=== PATIENT | male | born 1955 | race Two or more races ===

== ENCOUNTER → 2020-10-06 09:36 | Outpatient (BNVA) | payer MEDICARE, SELFPAY | PROVIDERS: Visit Provider Physician Assistant | DX: R13.10 Dysphagia, unspecified (principal); K21.9 Gastro-esophageal reflux disease without esophagitis; K22.2 Esophageal obstruction; D36.9 Benign neoplasm, unspecified site; Z78.9 Other specified health status | CPT/HCPCS: 99202 ==

== ENCOUNTER 2020-10-13 09:38 | Day surgery (SDC) | payer MEDICARE, SELFPAY ==
--- NOTE | 2020-10-10 09:45 | P.CONAN_ITS ---
Documented by User: Maricarmen Rg 10/10/20 09:51 HPI - Anesthesia Eval Consult details Narrative: 65yo M for Upper Endoscopy [facility] Active Problems Active Problems: All Active Problems (Updated 10/06/20 @ 10:49 by Ami Rico PA-C) Language barrier (Acute) Tubular adenoma (Acute) Schatzki's ring (Acute) HTN (hypertension) (Acute) Dysphagia (Acute) Acid reflux (Acute) Past Medical History Medical History Acid reflux Dysphagia HTN (hypertension) Schatzki's ring Surgical History Surgical History H/O umbilical hernia repair Social History Social History Household Members: None Alcohol intake: current Alcohol intake frequency: holidays/special occasions only Smoking Status: Former smoker Use of substances other than those prescribed or required for medical reasons: No Advance Directives: No Advance Directives Information Provided: Yes Recently lost weight without trying: No Current occupational status: retired [email or web address] Allergies Allergy/AdvReac Type Severity Reaction Status Date / Time No Known Allergies Allergy Unverified 03/27/20 14:59 [No Known Allergies*] Home Medications Medication Instructions Recorded Confirmed Last Taken Type donepezil 5 mg tablet 5 mg PO DAILY 10/06/20 10/06/20 Unknown History hydrochlorothiazide 12.5 mg tablet 12.5 mg PO DAILY 10/06/20 10/06/20 Unknown History losartan 100 mg tablet 100 mg PO DAILY 10/06/20 10/06/20 Unknown History pantoprazole 40 mg tablet,delayed 40 mg PO DAILY 10/06/20 10/06/20 Unknown History release Exam Exam Date and Time: October 10, 2020 0945 Assessment and Plan Assessment Anesthesia Assessment: Chart Reviewed Documented by User: April Jain 10/13/20 11:54 [facility] Past Medical History Medical History Acid reflux Dysphagia HTN (hypertension) Schatzki's ring Family History Family history of problems with anesthesia: No Surgical History Surgical History H/O umbilical hernia repair History of Problems with Anesthesia: No Social History Social History Household Members: None Alcohol intake: current Alcohol intake frequency: holidays/special occasions only Smoking Status: Former smoker Use of substances other than those prescribed or required for medical reasons: No Advance Directives: No Advance Directives Information Provided: Yes Recently lost weight without trying: No Current occupational status: retired Meds Allergies Allergy/AdvReac Type Severity Reaction Status Date / Time No Known Allergies Allergy Unverified 03/27/20 14:59 [No Known Allergies*] Home Medications Medication Instructions Recorded Confirmed Last Taken Type donepezil 5 mg tablet 5 mg PO DAILY 10/06/20 10/06/20 Unknown History hydrochlorothiazide 12.5 mg tablet 12.5 mg PO DAILY 10/06/20 10/06/20 Unknown History losartan 100 mg tablet 100 mg PO DAILY 10/06/20 10/06/20 Unknown History pantoprazole 40 mg tablet,delayed 40 mg PO DAILY 10/06/20 10/06/20 Unknown History release Exam Exam Date and Time: Height 5 ft 4 in Weight 63.503 kg Vital Signs Temp Pulse Resp BP Pulse Ox 10/13/20 11:32 98.1 F 68 15 155/82 H 97 Airway Mallampati Class: II TM Dist: >3cm Neck ROM: Full Heart: RRR Lungs: CTAB Assessment and Plan Assessment Anesthesia Assessment: Anesthesia Plan Discussed and Chart Reviewed Final Anesthetic Review NPO: Yes ASA Class: II Final Preanesthetic Review: No Changes in Pt Med Stat, Meds/Allgs Chart Reviewed, Consent Obtained/Reviewed and Anes Risks/Benef Reviewed Patient Risk: Low Procedure Risk: Low Assessment/Block/Sedation in SS: Assess/Block/Sedation-SS Anesthetic Plan Anesthetic Plan: MAC: Disposition: Standard PACU
[2020-10-13 11:09] VITALS: BMI 24.0
[2020-10-13 11:32] VITALS: BP 155/82; PULSE 68; RESP 15; TEMP 36.7; O2SAT 97
[2020-10-13] MEDS: Lactated Ringers 1,000 ML 100 ML IVCONT (11:33)
--- NOTE | 2020-10-13 12:08 | P.OP_ITS ---
Operative Note Operative Note Date of Service: 10/13/20 Narrative: Pre-op diagnosis: GERD, dysphagia Post-op diagnosis: other (GERD, Hiatal hernia, Schatzki's ring, esophagitis, gastritis) Procedure: FLEXIBLE TRANSORAL UPPER GASTROINTESTINAL ENDOSCOPY WITH BIOPSIES AND ESOPHAGEAL BALLOON DILATION Consent: Indications for the procedure and potential complications of bleeding, perforation, reaction to medications and missed diagnosis were discussed with the patient and informed consent was obtained. Instrument: Olympus GIF H 190 mid size upper endoscope Monitoring: Vital signs and clinical assessment, continuous EKG monitoring, Pulse oximetry, Carbon Dioxide monitoring and blood pressure monitoring were done throughout the procedure. Procedure: The patient was placed in the left lateral decubitis position and pre-procedure medications were administered and a bite block was placed. The endoscope was inserted into the mouth and advanced under direct vision to the third part of duodenum. A careful inspection was made as the upper endoscope was withdrawn including a retroflexed examination of the proximal stomach; Findings and interventions are described below. Findings: Larynx: Normal Esophagus: Tortuous esophagus with increased tertiary contractions. GE junction at 38 cms, hiatal hernia 38 to 42 cms. A focal 0.5 cms chronic appearing erosion at GE junction. A partially obstructing schatki's ring. Esophageal balloon dilation was per formed with 19 and 20 mm CRE balloon for 60 seconds at each level. Stomach: Moderate diffuse gastric erythema. Biopsies were obtained from the gastric antrum and body of the stomach. Grade 3 flap valve on retroflexed examination of the cardia. Duodenum: Normal bulb and descending duodenum Intervention: Biopsies and esophageal balloon dilation to 20 mm (60 F) as noted above Impression and Post Procedure Diagnosis: Endoscopy Findings: ESOPHAGUS: Tortuous esophagus with increased tertiary contractions. GE junction at 38 cms, hiatal hernia 38 to 42 cms. A focal 0.5 cms chronic appearing erosion at GE junction. A partially obstructing schatki's ring. Esophageal balloon dilation was performed with 19 and 20 mm CRE balloon for 60 seconds at each level. STOMACH: Diffuse gastritis Dysphagia is likely a combination of esophageal motility disorder and Schatzki's ring. Plan: Await pathology results Patient has an appointment on 10/23/20 in the GI Clinic with WAYNE Doran. If symptoms persist, consider further evaluation with a barium swallow. Above findings were reviewed with the patient and GERD handout was given in the discharge area Surgeon: Dionne Gage MD Anesthesia: MAC (Sydney Oliver CRNA) Director Of Recreation Therapy: Kayli Mendez Estimated blood loss (mL): 0 Pathology: other (A. Gastric antrum, B. gastric body) Condition: stable Disposition: PACU
--- NOTE | 2020-10-13 12:08 | MHC.SHP ---
Pre-Procedural Eval Section A The patient is an INPATIENT: No Changes since office visit: Yes Patient answered all questions; No Cold of Flu in the past 2 weeks, No New Medical Problems and No Changes in Medication The History & Physical has been completed within 30 days and I have reviewed it.: Yes Section B Chief Complaint: GERD Allergies: Allergies Allergy/AdvReac Type Severity Reaction Status Date / Time No Known Allergies Allergy Unverified 03/27/20 14:59 [No Known Allergies*] Plan I have reviewed the history and physical and performed a pertinent physical examination on my patient. No changes have occurred unless specified.
[2020-10-13 12:39] VITALS: BP 135/76; PULSE 78; RESP 15; TEMP 36.8; O2SAT 99
[2020-10-13 12:55] VITALS: BP 140/82; PULSE 59; RESP 18; TEMP 36.6; O2SAT 99
== END 2020-10-13 13:50 | disposition home or self-care (01) ==
PROVIDERS: Visit Provider Internal Medicine Gastroenterology
PROC: 0DJ08ZZ Inspection of Upper Intestinal Tract, Via Natural or Artificial Opening Endoscopic (ICD-10-PCS; CPT 43235; principal; 2020-10-13 11:20)
DX: K21.9 Gastro-esophageal reflux disease without esophagitis (principal); K22.2 Esophageal obstruction; K29.50 Unspecified chronic gastritis without bleeding; K44.9 Diaphragmatic hernia without obstruction or gangrene; I10 Essential (primary) hypertension; Z79.899 Other long term (current) drug therapy; Z87.891 Personal history of nicotine dependence
CPT/HCPCS: 43249; 43239; 88305; 88342; C1726

== ENCOUNTER → 2020-10-23 08:55 | Outpatient (BNVA) | payer MEDICARE, SELFPAY | PROVIDERS: PCP Internal Medicine; Visit Provider Physician Assistant | CPT/HCPCS: Q3014 ==

== ENCOUNTER 2020-11-07 08:41 | Outpatient (REF) | payer MEDICARE, SELFPAY ==
--- NOTE | ~2020-11-07 | FL_ITS ---
EXAMINATION: FL BARIUM SWALLOW CLINICAL INFORMATION: Dysphagia. COMPARISON: None. TECHNIQUE: Barium swallow examination is performed using fluoroscopic evaluation in addition to multiple fluoroscopic spot views. The patient is imaged both upright and prone and using both thick and thin sulfate along with effervescent granules. Fluoroscopy time: 1.7 minutes DAP: 63.7 Gy-cm2 Images: 68 FINDINGS: Mild esophageal dysmotility. There is a smooth impression of the posterior aspect of the cervical esophagus, probably related to the cricopharyngeal muscle. There is a smooth concavity along the left lateral aspect of the esophagus at the level of the upper thorax. This could be related to extrinsic compression. No hiatal hernia. No reflux is seen. Patient swallowed a barium tablet with normal passage to the stomach. FL/FL barium swallow IMPRESSION: 1. Prominent smooth concavity along the left lateral aspect of the esophagus at the level of the upper thorax. This could be related to extrinsic compression. Recommend further evaluation with CT chest. 2. Mild esophageal dysmotility. 3. Impression along the posterior aspect of the cervical esophagus, may be related to cricopharyngeal muscle.
== END 2020-11-07 08:42 | disposition home or self-care (01) ==
LOC: HO.XRAY 08:41
PROVIDERS: Visit Provider Physician Assistant
DX: R13.10 Dysphagia, unspecified (principal); K21.9 Gastro-esophageal reflux disease without esophagitis; K22.2 Esophageal obstruction
CPT/HCPCS: 74220

== ENCOUNTER → 2020-11-12 14:02 | Outpatient (BNVA) | payer MEDICARE, SELFPAY | PROVIDERS: Visit Provider Physician Assistant | DX: Z13.89 Encounter for screening for other disorder (principal) | CPT/HCPCS: Q3014 ==

== ENCOUNTER 2020-12-26 13:34 | Outpatient (REF) | payer MEDICARE, SELFPAY ==
[2020-12-26 15:44] LABS: Blood Urea Nitrogen 23 mg/dL (9-16); Estimated Glomerular Filt Rate > 60
== END 2020-12-26 13:35 | disposition home or self-care (01) ==
LOC: HO.CT 13:34
PROVIDERS: PCP Internal Medicine; Visit Provider Physician Assistant
DX: R13.10 Dysphagia, unspecified (principal); R93.3 Abnormal findings on diagnostic imaging of other parts of digestive tract
CPT/HCPCS: 36415; 82565; 84520

== ENCOUNTER → 2021-07-16 10:19 | Outpatient (BNVA) | payer MEDICARE, SELFPAY | PROVIDERS: PCP Internal Medicine; Referring Provider Internal Medicine; Visit Provider Surgery | DX: K43.9 Ventral hernia without obstruction or gangrene (principal); R10.31 Right lower quadrant pain | CPT/HCPCS: 99202 ==

== ENCOUNTER 2021-08-07 09:06 | Outpatient (REF) | payer MEDICARE, SELFPAY ==
[2021-08-07 09:26] LABS: MANUAL DIFF FLAG NO
[2021-08-07 10:17] LABS: Basophils Absolute Auto 0.1 X10*3/uL (0.0-0.2); Basophils Percent Auto 0.6 % (0-2); Eosinophils Absolute Auto 0.5 X10*3/uL (0.0-0.4); Eosinophils Percent Auto 6.5 % (0-4); Imm Gran Abs Auto 0.02 X10*3/uL (0.00-0.03); Imm Gran Pct Auto 0.3 % (0.0-0.4); Lymphocytes Absolute Auto 1.8 X10*3/uL (1.2-4.9); Lymphocytes Percent Auto 23.5 % (20-40); Mean Corpuscular HGB Conc 32.6 g/dl (31.0-36.0); Mean Corpuscular Hemoglobin 29.4 pg (27.0-33.0); Mean Corpuscular Volume 90.1 fL (80.0-98.0); Mean Platelet Volume 8.6 fL (9.4-12.4); Monocytes Absolute Auto 0.7 X10*3/uL (0.1-1.2); Monocytes Percent Auto 8.8 % (2-11); Neutrophils Absolute Auto 4.7 x10*3/uL (2.0-8.3); Neutrophils Percent Auto 60.3 % (45-73); Platelet Count 430 X10*3/uL (160-400); Red Blood Count 4.77 X10*6/uL (4.60-5.80); Red Cell Distribution Width 12.8 % (11.0-16.0); White Blood Count 7.7 X10*3/uL (4.8-10.8)
[2021-08-07 10:25] LABS: Estimated Average Glucose 111 mg/dL; Hemoglobin A1c % 5.5 %
[2021-08-07 10:52] LABS: Alanine Aminotransferase 13 U/L (0-40); Albumin Level 4.5 g/dL (3.5-5.0); Alkaline Phosphatase 68 U/L (39-117); Anion Gap 12 (12-20); Aspartate Amino Transferase 15 U/L (5-37); Bilirubin Direct 0.3 mg/dL (0.0-0.5); Bilirubin Total 0.7 mg/dL (0.0-1.0); Blood Urea Nitrogen 15 mg/dL (9-16); Calcium 9.9 mg/dL (8.4-10.2); Carbon Dioxide 31 mmol/L (22-29); Chloride 102 mmol/L (96-108); Cholesterol 243 mg/dL; Estimated Glomerular Filt Rate > 60; Glucose Random 95 mg/dL (60-115); HDL Cholesterol 53 mg/dL; LDL Cholesterol Calculated 176 mg/dl; Potassium 4.5 mmol/L (3.3-5.1); Sodium 140 mmol/L (135-145); Total Protein 7.5 g/dL (6.5-8.0); Triglycerides 72 mg/dL
[2021-08-07 11:01] LABS: Vitamin D 25-OH Total 32.6 ng/mL (>30)
== END 2021-08-07 09:07 | disposition home or self-care (01) ==
LOC: HO.LAB 09:06
PROVIDERS: Absent Provider Internal Medicine; PCP Internal Medicine; Visit Provider Surgery
DX: R10.31 Right lower quadrant pain (principal); I10 Essential (primary) hypertension
CPT/HCPCS: 36415; 80048; 80061; 80076; 82306; 83036; 84520; 85025

== ENCOUNTER 2021-08-11 11:38 | Outpatient (REF) | payer MEDICARE, SELFPAY ==
--- NOTE | ~2021-08-11 | CT_ITS ---
EXAMINATION: CT ABDOMEN AND PELVIS WITH CONTRAST CLINICAL INFORMATION: Right lower quadrant pain. COMPARISON: None TECHNIQUE: Multidetector volumetric images were obtained from the superior aspect of the liver through the pubic symphysis following administration 85 mL of Omnipaque 350 intravenous contrast. Sagittal and coronal reformatted images were obtained on the technologist's workstation. Oral contrast: No This CT examination was performed using dose optimization techniques as appropriate, variously including the following: *Automated exposure control *Adjustment of mA and/or kV according to patient size (this includes techniques or standardized protocols for targeted exams where dose is matched to indication/reason for exam; i.e. extremities or head) *Use of iterative reconstruction technique DLP: 266 mGy-cm FINDINGS: LUNG BASES: The lung bases are clear. The heart size is normal. LIVER, GALLBLADDER, AND BILIARY TREE: The liver is normal in size, shape, and attenuation. No focal hepatic lesion or biliary ductal dilatation is present. The gallbladder is unremarkable with no evidence of radiopaque gallstones, gallbladder wall thickening, or obvious pericholecystic inflammatory changes. PANCREAS: Unremarkable. SPLEEN: Unremarkable. ADRENAL GLANDS: Unremarkable. KIDNEYS AND URETERS: The kidneys are normal in size, shape, and attenuation. No hydronephrosis, hydroureter, or calculi seen. No perinephric stranding. There is a 6 mm nonenhancing cyst midpole left kidney. BLADDER: Unremarkable. GASTROINTESTINAL TRACT: There is scattered stool and oral contrast seen throughout the colon without distention. The small bowel loops are normal caliber. Appendix is normal caliber. No inflammatory process seen in the right lower quadrant. ABDOMINAL WALL: There is a small umbilical hernia containing fat. LYMPH NODES: Normal. VASCULAR: Minimal atherosclerotic calcification of abdominal aorta without dilatation. PELVIC VISCERA: Unremarkable. OSSEOUS STRUCTURES: No lytic or sclerotic process seen. CT/CT abdomen pelvis w con IMPRESSION: 1. No acute intra-abdominal process seen. 2. A normal appendix, ileocecal junction and terminal ileum is noted. Fleischner guidelines were followed.
[2021-08-11] MEDS: iohexoL 350 MG/ML 100 ML INFUS..BTL 85 ML IV (15:14)
[2021-08-11] MEDS: Barium Sulfate Oral (Mocha) 450 ML ORAL.SUSP 900 ML PO (15:15)
== END 2021-08-11 11:39 | disposition home or self-care (01) ==
LOC: HO.CT 11:38
PROVIDERS: Visit Provider Surgery
DX: R10.31 Right lower quadrant pain (principal); K43.9 Ventral hernia without obstruction or gangrene
CPT/HCPCS: 74177; Q9967

== ENCOUNTER → 2021-08-20 14:22 | Outpatient (BNVA) | payer MEDICARE, SELFPAY | PROVIDERS: PCP Internal Medicine; Referring Provider Internal Medicine; Visit Provider Surgery | DX: Z98.890 Other specified postprocedural states (principal); Z87.19 Personal history of other diseases of the digestive system | CPT/HCPCS: 99212 ==

== ENCOUNTER → 2022-06-21 14:30 | Outpatient (BNVA) | payer MEDICARE, SELFPAY | PROVIDERS: PCP Internal Medicine; Referring Provider Internal Medicine; Visit Provider Internal Medicine Cardiovascular Disease | DX: R07.9 Chest pain, unspecified (principal); I10 Essential (primary) hypertension | CPT/HCPCS: 93005; 99202 ==

== ENCOUNTER 2022-06-28 08:08 | Outpatient (REF) | payer OTHER, SELFPAY ==
[2022-06-28 09:43] LABS: Anion Gap 14 (12-20); Blood Urea Nitrogen 13 mg/dL (9-16); Carbon Dioxide 29 mmol/L (22-29); Chloride 104 mmol/L (96-108); Estimated Glomerular Filt Rate > 60; Glucose Random 97 mg/dL (60-115); Potassium 4.9 mmol/L (3.3-5.1); Sodium 142 mmol/L (135-145)
== END 2022-06-28 08:09 | disposition home or self-care (01) ==
LOC: HO.LAB 08:08
PROVIDERS: PCP Internal Medicine; Visit Provider Internal Medicine Cardiovascular Disease
DX: I10 Essential (primary) hypertension (principal)
CPT/HCPCS: 36415; 80048

== ENCOUNTER → 2022-08-02 08:02 | Outpatient (REF) | payer OTHER, SELFPAY ==
--- NOTE | ~2022-08-02 | NM_ITS ---
Exercise Myocardial perfusion study Indication: Chest pain to evaluate for myocardial ischemia Technique: The patient was brought in for an exercise perfusion study on 08/02/2022. Patient performed exercise as per Cresencio protocol and was injected 25 mCi of sestamibi was given intravenously one target HR was achieved. Images were obtained using the SPECT gamma camera interlaced with the gating device. Images were obtained in supine position. Resting perfusion study was performed on 08/03/2022. Patient was administered 25 mCi of sestamibi intravenously at rest. Images were then obtained in supine position. Images obtained with and without CT attenuation. Total DLP 74 mGy-cm. Images were processed with the software and compared side to side in short axis, horizontal long axis and vertical long axis views. Findings: The stress perfusion study showed non attenuated images show moderately reduced uptake in the basal inferior wall of the LV myocardium. Remainder of the LV myocardium is normally perfused. Attenuation corrected images show normal uptake of radiotracer in all segments of LV myocardium. The gated study shows normal LV systolic function with calculated LVEF of 70%. LV cavity is normal in size. The gated study shows normal systolic wall thickening and contraction of all segments. There is no transient ischemic dilation. Resting study shows no change in perfusion pattern compared to stress perfusion study. Gating at rest reveals normal systolic wall motion with ejection fraction at 68%. The findings are consistent with normal myocardial perfusion. NM/NM cardiolite stress test Impression: 1. Normal myocardial perfusion 2. Gated LVEF is 70% 3. Transient ischemic dilatation not present Stress EKG is negative for ischemia
--- NOTE | 2022-08-02 08:05 | CA_ITS ---
Transthoracic Echocardiogram Patient (Last, First, Middle): Chepe Xie A Gender: Male Date of : 1955 Age: 67 Procedure Date: 08/02/2022 Procedure Type: Transthoracic Echocardiogram Location: OP Height: 160.02 cm Weight: 63.5 kg BSA: 1.66 m2 Heart Rate: bpm BP: 132 / 80 mmHg Seafood Preparer: Referring MD: Chapin Miranda MD Symptoms: I10 - Essential (primary) hypertension Study Quality: Good ECG Rhythm: Sinus Conclusions: - The left ventricular systolic function is normal. The visually estimated ejection fraction is between 55-60%. - The basal inferior, basal inferoseptal, and basal inferolateral segments are hypokinetic. - No obvious valvular pathology seen on this study. - There is evidence of a dilated coronary sinus. Findings Left Ventricle Normal left ventricular cavity size. There is mildly increased left ventricular wall thickness. The left ventricular systolic function is normal. The visually estimated ejection fraction is between 55-60%. There is evidence of regional wall motion abnormalities. Diastolic function is normal for age. Wall Motion Rest Echo Findings The basal inferior, basal inferoseptal, and basal inferolateral segments are hypokinetic. Right Ventricle Normal right ventricular cavity size and systolic function. Atria Both atria are normal in size. Aortic Valve There is a normal trileaflet aortic valve. There is no aortic valve stenosis. There is trace (trivial) aortic valve regurgitation. Mitral Valve The mitral valve appears normal. There is trace mitral valve regurgitation. There is no mitral valve stenosis. Pulmonic Valve The pulmonic valve is likely normal. Tricuspid Valve Normal tricuspid valve structure. There is trace tricuspid valve regurgitation. There is no evidence of pulmonary hypertension. Great Vessels The asc aorta is normal in size. Venous The inferior vena cava is normal in size and collapses less than 50% with inspiration. There is evidence of a dilated coronary sinus. Pericardium/Pleural There is no evidence of pericardial effusion. Prior Study Comparison No prior study available for comparison. Recommendations, Care & Conclusions No obvious valvular pathology seen on this study. Measurements 2D Linear Measurements IVSd: 1.19 0.6-0.9/0.6-1.0 cm LVIDd: 3.78 3.9-5.3/4.2-5.9 cm LVIDd Index: 2.28 2.4-3.2/2.2-3.1 cm/m2 LVIDs: 2.65 2.0-3.6 cm LVPWd: 1.19 0.7-1.1 cm Ao Root: 3.00 2.1-3.5 cm LA Diam: 2.70 2.7-3.8/3.0-4.0 cm LAIDs Index: 1.63 1.5-2.3 cm/m2 LV Mass: 186.92 67-162/88-224 g LV Mass Index: 112.60 43-95/49-115 g/m2 LVOT Diam: 2.00 3.0+(-)1.3 cm 2D Systolic Function EF 4C: 52.20 >55% EF 2C: 62.50 >55% EF BiP: 53.60 >55% Mitral Valve MV Pk E: 0.61 MV PK A: 0.80 MV Decel Time: 194.00 E/A: 0.80 E'Lateral: 9.14 E'Medial: 6.74 E/E' Med: 9.00 E/E' Lat: 6.70 PHT: 57.00 MVA PHT: 3.86 Decel Laporte: 3.14 Aortic Valve AoV Pk Morgan: 1.45 AoV Mn Omrgan: 1.03 AoV VTI: 0.31 AoV Pk Grad: 8.00 Aov Mn Grad: 5.00 CHARLIE Cont.VTI: 1.79 LVOT LVOT Pk Morgan: 0.75 LVOT Mn Morgan: 0.45 LVOT VTI: 0.18 LVOT Pk Grad: 2.00 LVOT Mn Grad: 1.00 LVOT Diam: 2.00 LVOT Area: 3.14 Diastolic Function MV Pk E: 0.61 MV Pk A: 0.80 E/A: 0.80 E'Medial: 6.74 E/E' Med: 9.00 E' Laterial: 9.14 E/E' Lat: 6.70 Right Ventricle TAPSE (mm): 26.00 TVS' Morgan: 12.00 Tricuspid Valve TR Pk Morgan: 2.25 TR Pk Grad: 20.00 RA Press: 8.00 RVSP: 28.00 Great Vessels Aorta Ao Root-2D: 3.00 2.0-3.7 cm Ao Asc: 3.00 2.1-3.4 cm Pulmonary Valve PV Pk Morgan: 1.08 Peak PV Grad: 5.00 Updated in Other Vendor System with Status of Final Mike Navarro MD electronically signed on 08/02/2022 11:08:10 AM with status of Final
--- NOTE | 2022-08-02 08:05 | CA_ITS ---
Acquisition Time: 2022-08-02 08:58:45 Total Exercise Time: 00:08:00 Test Indications: CHEST PAIN Medications: AMLODIPINE ASA ATORVASTATIN DONEPEZIL HCTZ LOSARTAN PANTOPRAZOLE SUCRALFATE Protocol: THONY Max HR: 148 BPM 98% of Pred: 151 BPM Max BP: 196/070 mmHG Max Work Load: 10.1 METS Exercise stress test with exercise 8 min of Thony protocol, achieving 98% MPHR, without anginal symptoms, without arrythmia, with baseline BP 146/78 and rise up to 196/70 with exercise, without EKG changes meeting criteria for ischemia. In recovery his BP came down to 148/78 . Nuclear images pending. Test reviewed with Dr Navarro Referred By: Chapin Miranda Overread By: ALANA WALLACE
== END ==
LOC: HO.CARD 08:02
PROVIDERS: PCP Internal Medicine; Visit Provider Internal Medicine Cardiovascular Disease
DX: R07.9 Chest pain, unspecified (principal); I10 Essential (primary) hypertension
CPT/HCPCS: 78452; 93017; 93306; A9500

== ENCOUNTER → 2022-09-24 10:28 | Outpatient (BNVA) | payer OTHER, SELFPAY | PROVIDERS: PCP Internal Medicine; Referring Provider Internal Medicine; Visit Provider Internal Medicine Cardiovascular Disease | DX: I10 Essential (primary) hypertension (principal) | CPT/HCPCS: 99212 ==

== ENCOUNTER 2023-09-12 14:22 | Outpatient (AMB) | payer OTHER, SELFPAY ==
[2023-09-12 14:24] VITALS: BP 160/98; PULSE 72; BMI 23.0
--- NOTE | 2023-09-12 14:24 | A.OFFVIS_ITS ---
Intake Vital Signs 09/12/23 14:24 Height 5 ft 4 in Weight 133 lb 13.129 oz BMI 23.0 BP 160/98 H Blood Pressure Location Lt brachial Position Sitting Pulse 72 Pulse Source Monitor Intake Visit Reasons: 1 year f/ up Intake Note: 1 year follow up Branch Credit Counselor Required: Yes Branch Credit Counselor Name: [facility] [place] Allergies No Known Allergies [No Known Allergies*] Allergy (Verified 09/24/22 10:35) Medication List - Last Reconciled 09/12/23 by Chapin Miranda MD amlodipine 10 mg PO QPM aspirin 81 mg PO QAM atorvastatin 40 mg PO BEDTIME cholecalciferol (vitamin D3) 50 mcg PO DAILY donepezil 10 mg PO BEDTIME hydrochlorothiazide 50 mg PO QAM ibuprofen 600 mg PO TID losartan 100 mg PO DAILY pantoprazole 40 mg PO DAILY spironolactone (Aldactone) 25 mg PO DAILY 90 days sucralfate mL PO HPI HPI Comments History of Present Illness Details Chepe comes for follow-up. History was obtained with help of calendering machine operator. Patient says usually his blood pressure at home are 128-134 systolic. He has no significant symptoms from cardiac perspective. He walks on a regular basis. Denies any exertional chest pain or shortness of breath. He denies any lightheadedness, syncope. No prolonged palpitation. He takes all his medications regularly. He said he had high salt diet yesterday. Otherwise watches the salt in his diet. [facility] Medical History Schatzki's ring HTN (hypertension) Dysphagia Acid reflux Surgical History Hx of esophagogastroduodenoscopy H/O umbilical hernia repair Social History Household Members: None Alcohol intake: current Alcohol intake frequency: holidays/special occasions only Patient Tobacco Use Status: Former Tobacco user Quit Date: 2015 Years Smoked: 30 +/- Current occupational status: retired Review of Systems Const Denies chills, Denies fatigue, Denies fever(s), Denies frequent falls, Denies weakness, Denies weight gain and Denies weight loss ENT Denies dizziness Card Denies chest pain, Denies leg edema, Denies lightheadedness, Denies palpitations, Denies dyspnea, Denies dyspnea on exertion, Denies orthopnea and Denies other (loss of consciousness) Resp Denies cough, Denies dyspnea and Denies dyspnea on exertion GI Denies hematochezia and Denies change in stool character Musc Denies abnormal gait, Denies muscle weakness, Denies numbness, Denies radiating pain into limb and Denies tingling Neuro Denies Abnormal speech present, Denies abnormal gait, Denies dizziness, Denies frequent falls, Denies numbness, Denies tingling and Denies weakness Endo Denies fatigue and Denies palpitations Physical Exam Vital Signs: Last Vital Signs Pulse 72 09/12/23 14:24 BP 160/98 H 09/12/23 14:24 BMI result Body Mass Index 23.0 Const General: cooperative, comfortable, no acute distress, alert and awake Nutritional Appearance: average body habitus Orientation/consciousness: patient oriented x3 Neck Neck: Yes trachea midline, Yes supple and Yes no JVD Resp Effort & Inspection: normal respiratory effort Auscultation: clear to auscultation bilaterally Cardio Jugular venous distension: no JVD Palpation: normal PMI Rate: regular rate Rhythm: regular rhythm Heart sounds: S1 normal heart sound present, S2 normal heart sound present, no click, no gallops, no murmurs and no rubs Neuro General: patient oriented x3 and no focal motor deficits Speech: No Abnormal speech present Office Procedures EKG Details: EKG shows normal sinus rhythm with voltage criteria for LVH 40465-[id number], Complete Assessment & Plan Assessment & Plan (1) Uncontrolled hypertension: Code(s): I10 - Essential (primary) hypertension Plan: One reading of uncontrolled blood pressure on today's exam. He had a higher salt diet yesterday. However advised him to monitor blood pressure at home more regularly at different times a day and maintain a log. Advised to drop of the log in 1 month's time. Said generally his blood pressure at home is well controlled. Does not have any exertional symptoms. Has no signs or symptoms of heart failure. At this point time I would suggest no change in therapy and follow-up after more data points to see if he requires further workup and further blood pressure lowering therapy. This was discussed with him. Importance of low-salt diet was discussed. He understands agrees. Will follow up in the clinic in 1 year's time, sooner p.r.n.. Coding Level of Care Code Est Pt Level 3 (40371) Diagnoses Uncontrolled hypertension I10 CPT Codes EKG - CPT: 86240-[id number], Complete ([id number])
== END 2023-09-12 14:47 | disposition home or self-care (01) ==
PROVIDERS: PCP Internal Medicine; Visit Provider Internal Medicine Cardiovascular Disease
DX: I10 Essential (primary) hypertension (principal)
CPT/HCPCS: 93010; 99213

== ENCOUNTER → 2023-09-12 14:22 | Outpatient (BNVA) | payer OTHER, SELFPAY | PROVIDERS: Visit Provider Internal Medicine Cardiovascular Disease | DX: I10 Essential (primary) hypertension (principal) | CPT/HCPCS: 93005; 99212 ==

== ENCOUNTER 2023-11-08 08:39 | Outpatient (REF) | payer OTHER, SELFPAY ==
[2023-11-08 12:35] LABS: Alanine Aminotransferase 13 U/L (0-40); Albumin Level 4.4 g/dL (3.5-5.0); Alkaline Phosphatase 51 U/L (39-117); Anion Gap 12 (12-20); Aspartate Amino Transferase 15 U/L (5-37); Bilirubin Direct 0.2 mg/dL (0.0-0.5); Bilirubin Total 0.9 mg/dL (0.0-1.0); Blood Urea Nitrogen 14 mg/dL (9-16); Calcium 9.2 mg/dL (8.4-10.2); Carbon Dioxide 26 mmol/L (22-29); Chloride 105 mmol/L (96-108); Cholesterol 228 mg/dL (<200); Estimated Glomerular Filt Rate > 60; Glucose Random 93 mg/dL (60-115); HDL Cholesterol 47 mg/dL (>40); LDL Cholesterol Calculated 163 mg/dL (<100); Potassium 3.9 mmol/L (3.3-5.1); Sodium 139 mmol/L (135-145); Total Protein 7.5 g/dL (6.5-8.0); Triglycerides 90 mg/dL (<150)
[2023-11-08 15:16] LABS: Estimated Average Glucose 108 mg/dL; Hemoglobin A1c % 5.4 % (<6.0)
== END 2023-11-08 08:40 | disposition home or self-care (01) ==
LOC: HO.HHCL 08:39
PROVIDERS: Visit Provider Internal Medicine
DX: I10 Essential (primary) hypertension (principal)
CPT/HCPCS: 36415; 80048; 80061; 80076; 83036

== ENCOUNTER 2024-01-09 09:34 | Outpatient (AMB) | payer OTHER, SELFPAY ==
[2024-01-09 09:34] VITALS: BP 160/90; PULSE 67; O2SAT 99; BMI 24.7
--- NOTE | 2024-01-09 09:34 | HO.NEPHOV ---
Vital Signs 01/09/24 09:34 Height 5 ft 4 in Weight 144 lb BMI 24.7 BP 160/90 H Blood Pressure Location Rt brachial Position Sitting Pulse 67 Pulse Source Pulse Oximeter Pulse Oximetry (%) 99 Oxygen Delivery Method Room Air Intake Visit Reasons: Resistant Hypertension/ Conf Solderer Dipper Required: Yes Solderer Dipper Name: Shola [id number] Accompanied by: Self / Same As Patient Allergies No Known Allergies [No Known Allergies*] Allergy (Verified 01/09/24 09:39) Medication List - Last Reconciled 01/09/24 by Yanick Lind MD amlodipine 10 mg PO QPM aspirin 81 mg PO QAM atorvastatin 40 mg PO BEDTIME carvedilol 6.25 mg PO BID cholecalciferol (vitamin D3) 50 mcg PO DAILY ezetimibe 10 mg PO DAILY HPI Comments Details: 68-year-old man with a history of hypertension has been referred for evaluation hypertension and possible 24 hour blood pressure monitoring. According to the chart he is on multiple antihypertensive medications. However he has not taking most of them. He has a list of medications in hand which included amlodipine 10 mg q.d. and carvedilol 6.25 mg b.i.d.. He was supposed to be on HCTZ, spironolactone, losartan but it appears that he has not taking any of these. [facility] Medical History Schatzki's ring HTN (hypertension) Dysphagia Acid reflux Surgical History Hx of esophagogastroduodenoscopy H/O umbilical hernia repair Social History Household Members: None Alcohol intake: current Alcohol intake frequency: holidays/special occasions only Patient Tobacco Use Status: Former Tobacco user Years Smoked: 30 +/- Current occupational status: retired Review of Systems Const Denies anorexia, Denies fever(s) and Denies weakness Eyes Denies blurry vision Card Denies no additional complaints and Denies dyspnea Resp Reports no additional complaints, Reports cough and Denies dyspnea GI Denies melena and Denies diarrhea Denies hematuria Musc Denies tingling Skin/Breast Denies rash Neuro Denies focal weakness, Denies tingling, Denies tremor(s) and Denies weakness Physical Exam Vital Signs: Last Vital Signs Pulse 67 01/09/24 09:34 BP 160/90 H 01/09/24 09:34 Pulse Ox 99 01/09/24 09:34 Oxygen Delivery Method Room Air 01/09/24 09:34 BMI result Body Mass Index 24.7 Const General: comfortable; No acute distress Orientation/consciousness: patient oriented x3 Eyes General: appearance normal, both eyes and all related structures Visual Lam: normal visual lam by confrontation Neck Neck: Yes supple and Yes no JVD Resp Effort & Inspection: normal respiratory effort and respiratory effort not decreased Auscultation: rhonchi Cardio Palpation: no palpable S3 and no palpable S4 Heart sounds: no rubs GI Inspection: Yes normal to inspection Palpation (GI): Soft to palpation Percussion: Yes normal to percussion Auscultation: normal bowel sounds General: Yes no CVA tenderness Back/Spine/Pelvis Back: no CVA tenderness Skin General skin exam: no petechiae and no purpura Neuro General: patient oriented x3 and no focal motor deficits Extrem General: No clubbing and No edema Results Reviewed Nephrology Results: Sodium 139 mmol/L (135-145) 11/08/23 Potassium 3.9 mmol/L (3.3-5.1) 11/08/23 Chloride 105 mmol/L (96-108) 11/08/23 Carbon Dioxide 26 mmol/L (22-29) 11/08/23 BUN 14 mg/dL (9-16) 11/08/23 Creatinine 0.85 mg/dL (0.5-1.4) 11/08/23 Calcium 9.2 mg/dL (8.4-10.2) 11/08/23 Assessment & Plan Assessment & Plan (1) Uncontrolled hypertension: Code(s): I10 - Essential (primary) hypertension Category: Medical Plan 68-year-old man with a history of hypertension currently has suboptimal blood pressure. I believes complaints could be playing a major role. Secondary causes should be evaluated as well. For now I will keep him on the current medications Check serum aldosterone and plasma renin activity. I have added spironolactone/HCTZ 20/25 one a day. Encouraged him to stay on low-sodium diet he will bring all his medications during his next visit. I shall arrange for a 24 hour ambulatory blood pressure monitoring as well. In the meantime encouraged him to stay on low-sodium diet. Orders: Orders Aldosterone Today I10 - Essential (primary) hypertension Aldost/Renin Today I10 - Essential (primary) hypertension Renin Today I10 - Essential (primary) hypertension Medications: New spironolacton-hydrochlorothiaz 25-25 mg 1 tab PO DAILY 90 tabs 0RF Coding Level of Care Code New Pt Level 4 (41704) Diagnoses Uncontrolled hypertension I10
== END 2024-01-09 09:57 | disposition home or self-care (01) ==
PROVIDERS: PCP Internal Medicine; Referring Provider Internal Medicine; Visit Provider Internal Medicine Hypertension Specialist
DX: I10 Essential (primary) hypertension (principal)
CPT/HCPCS: 99204

== ENCOUNTER 2024-01-09 09:34 | Outpatient (REF) | payer OTHER, SELFPAY ==
[2024-01-13 17:43] LABS: Renin 0.36 ng/mL/h (0.25-5.82)
[2024-01-14 13:23] LABS: Plasma Renin Activity 0.23 ng/mL/h (0.25-5.82)
== END 2024-01-09 09:35 | disposition home or self-care (01) ==
LOC: HO.LAB 09:34
PROVIDERS: PCP Internal Medicine; Referring Provider Internal Medicine; Visit Provider Internal Medicine Hypertension Specialist
DX: I10 Essential (primary) hypertension (principal)
CPT/HCPCS: 36415; 82088; 84244; 99202

== ENCOUNTER 2024-02-02 11:23 | Outpatient (AMB) | payer OTHER, SELFPAY ==
[2024-02-02 11:36] VITALS: BP 140/80; PULSE 68; O2SAT 98; BMI 24.7
--- NOTE | 2024-02-02 11:36 | HO.NEPHOV_ITS ---
Vital Signs 02/02/24 11:36 Height 5 ft 4 in Weight 144 lb BMI 24.7 BP 140/80 H Blood Pressure Location Rt brachial Position Sitting Pulse 68 Pulse Source Pulse Oximeter Pulse Oximetry (%) 98 Oxygen Delivery Method Room Air Intake Visit Reasons: Hypertension/ Conf Bus Operator Required: Yes Bus Operator Name: Luz Elena [id number] Accompanied by: Self / Same As Patient Allergies No Known Allergies [No Known Allergies*] Allergy (Verified 02/02/24 11:39) HPI Comments Details: 68-year-old man with a history of hypertension has been referred for evaluation hypertension and possible 24 hour blood pressure monitoring. All his medications were reviewed. He seems compliant to his medications at this point. No specific complaints today. Bus Operator service was used [facility] Medical History Schatzki's ring HTN (hypertension) Dysphagia Acid reflux Surgical History Hx of esophagogastroduodenoscopy H/O umbilical hernia repair Social History Household Members: None Alcohol intake: current Alcohol intake frequency: holidays/special occasions only Patient Tobacco Use Status: Former Tobacco user Years Smoked: 30 +/- Current occupational status: retired Physical Exam Vital Signs: Last Vital Signs Pulse 68 02/02/24 11:36 BP 140/80 H 02/02/24 11:36 Pulse Ox 98 02/02/24 11:36 Oxygen Delivery Method Room Air 02/02/24 11:36 BMI result Body Mass Index 24.7 Const General: comfortable; No acute distress Orientation/consciousness: patient oriented x3 Eyes General: appearance normal, both eyes and all related structures Visual [place]: normal visual [place] by confrontation Neck Neck: Yes supple and Yes no JVD Resp Effort & Inspection: normal respiratory effort and respiratory effort not decreased Auscultation: rhonchi Cardio Palpation: no palpable S3 and no palpable S4 Heart sounds: no rubs GI Inspection: Yes normal to inspection Palpation (GI): Soft to palpation Percussion: Yes normal to percussion Auscultation: normal bowel sounds General: Yes no CVA tenderness Back/Spine/Pelvis Back: no CVA tenderness Skin General skin exam: no petechiae and no purpura Neuro General: patient oriented x3 and no focal motor deficits Extrem General: No clubbing and No edema Results Reviewed Nephrology Results: Sodium 139 mmol/L (135-145) 11/08/23 Potassium 3.9 mmol/L (3.3-5.1) 11/08/23 Chloride 105 mmol/L (96-108) 11/08/23 Carbon Dioxide 26 mmol/L (22-29) 11/08/23 BUN 14 mg/dL (9-16) 11/08/23 Creatinine 0.85 mg/dL (0.5-1.4) 11/08/23 Calcium 9.2 mg/dL (8.4-10.2) 11/08/23 Assessment & Plan Assessment & Plan (1) Uncontrolled hypertension: Code(s): I10 - Essential (primary) hypertension Category: Medical Plan 68-year-old man with a history of hypertension currently blood pressure is better controlled with current regimen Encouraged him to stay on low-sodium diet he will bring all his medications during his next visit. In the meantime encouraged him to stay on low-sodium diet. Increase p.o. fluid intake. Repeat lab work ordered including serum potassium No changes were made today Orders: Orders Basic Metabolic Panel Today I10 - Essential (primary) hypertension Coding Level of Care Code Est Pt Level 3 (94501) Diagnoses Uncontrolled hypertension I10
== END 2024-02-02 11:49 | disposition home or self-care (01) ==
PROVIDERS: PCP Internal Medicine; Visit Provider Internal Medicine Hypertension Specialist
DX: I10 Essential (primary) hypertension (principal)
CPT/HCPCS: 99213

== ENCOUNTER → 2024-02-02 11:23 | Outpatient (BNVA) | payer OTHER, SELFPAY | PROVIDERS: PCP Internal Medicine; Visit Provider Internal Medicine Hypertension Specialist | DX: I10 Essential (primary) hypertension (principal) | CPT/HCPCS: 99212 ==

== ENCOUNTER 2024-02-02 12:01 | Outpatient (REF) | payer OTHER, SELFPAY ==
[2024-02-02 13:29] LABS: Anion Gap 12 (12-20); Blood Urea Nitrogen 16 mg/dL (9-16); Carbon Dioxide 30 mmol/L (22-29); Chloride 100 mmol/L (96-108); Estimated Glomerular Filt Rate > 60; Glucose Random 101 mg/dL (60-115); Potassium 4.3 mmol/L (3.3-5.1); Sodium 138 mmol/L (135-145)
== END 2024-02-02 12:02 | disposition home or self-care (01) ==
LOC: HO.10HDL 12:01
PROVIDERS: Visit Provider Internal Medicine Hypertension Specialist
DX: I10 Essential (primary) hypertension (principal)
CPT/HCPCS: 36415; 80048

== ENCOUNTER 2024-05-28 10:54 | Outpatient (AMB) | payer OTHER, SELFPAY ==
[2024-05-28 11:00] VITALS: BP 116/64; PULSE 70; O2SAT 96; BMI 24.5
--- NOTE | 2024-05-28 11:00 | HO.NEPHOV ---
Vital Signs 05/28/24 11:00 Height 5 ft 4 in Weight 143 lb BMI 24.5 BP 116/64 Blood Pressure Location Rt brachial Position Sitting Pulse 70 Pulse Source Pulse Oximeter Pulse Oximetry (%) 96 Oxygen Delivery Method Room Air Intake Visit Reasons: Hypertension/ Conf Cephalometric Analyst Required: Yes Cephalometric Analyst Name: [id number] alexander Accompanied by: Self / Same As Patient Allergies No Known Allergies [No Known Allergies*] Allergy (Verified 05/28/24 11:01) Medication List - Last Reconciled 05/28/24 by Yanick Lind MD amlodipine 10 mg PO QPM aspirin 81 mg PO QAM atorvastatin 40 mg PO BEDTIME carvedilol 6.25 mg PO BID cholecalciferol (vitamin D3) 50 mcg PO DAILY donepezil 10 mg PO DAILY ezetimibe 10 mg PO DAILY hydrochlorothiazide 50 mg PO DAILY losartan 100 mg PO DAILY pantoprazole 40 mg PO DAILY HPI Comments Details: 68-year-old man with a history of hypertension has been referred for evaluation hypertension and possible 24 hour blood pressure monitoring. All his medications were reviewed. He seems compliant to his medications at this point. No specific complaints today. Cephalometric Analyst service was used [facility] Medical History Schatzki's ring HTN (hypertension) Dysphagia Acid reflux Surgical History Hx of esophagogastroduodenoscopy H/O umbilical hernia repair Social History Household Members: None Alcohol intake: current Alcohol intake frequency: holidays/special occasions only Patient Tobacco Use Status: Former Tobacco user Years Smoked: 30 +/- Current occupational status: retired Physical Exam Vital Signs: Last Vital Signs Pulse 70 05/28/24 11:00 BP 116/64 05/28/24 11:00 Pulse Ox 96 05/28/24 11:00 Oxygen Delivery Method Room Air 05/28/24 11:00 BMI result Body Mass Index 24.5 Const General: comfortable; No acute distress Orientation/consciousness: patient oriented x3 Eyes General: appearance normal, both eyes and all related structures Visual Lam: normal visual lam by confrontation Neck Neck: Yes supple and Yes no JVD Resp Effort & Inspection: normal respiratory effort and respiratory effort not decreased Auscultation: rhonchi Cardio Palpation: no palpable S3 and no palpable S4 Heart sounds: no rubs GI Inspection: Yes normal to inspection Palpation (GI): Soft to palpation Percussion: Yes normal to percussion Auscultation: normal bowel sounds General: Yes no CVA tenderness Back/Spine/Pelvis Back: no CVA tenderness Skin General skin exam: no petechiae and no purpura Neuro General: patient oriented x3 and no focal motor deficits Extrem General: No clubbing and No edema Results Reviewed Nephrology Results: Sodium 138 mmol/L (135-145) 02/02/24 Potassium 4.3 mmol/L (3.3-5.1) 02/02/24 Chloride 100 mmol/L (96-108) 02/02/24 Carbon Dioxide 30 mmol/L (22-29) H 02/02/24 BUN 16 mg/dL (9-16) 02/02/24 Creatinine 1.02 mg/dL (0.5-1.4) 02/02/24 Calcium 10.0 mg/dL (8.4-10.2) 02/02/24 Assessment & Plan Assessment & Plan (1) Uncontrolled hypertension: Code(s): I10 - Essential (primary) hypertension Category: Medical Plan 68-year-old man with a history of hypertension currently blood pressure is better controlled with current regimen Encouraged him to stay on low-sodium diet he will bring all his medications during his next visit. In the meantime encouraged him to stay on low-sodium diet. Increase p.o. fluid intake. Repeat lab work ordered including serum potassium No changes were made today Orders: Orders Basic Metabolic Panel 6 Months I10 - Essential (primary) hypertension Coding Level of Care Code Est Pt Level 3 (95339) Diagnoses Uncontrolled hypertension I10
== END 2024-05-28 11:11 | disposition home or self-care (01) ==
PROVIDERS: PCP Internal Medicine; Visit Provider Internal Medicine Hypertension Specialist
DX: I10 Essential (primary) hypertension (principal)
CPT/HCPCS: 99213

== ENCOUNTER → 2024-05-28 10:54 | Outpatient (BNVA) | payer OTHER, SELFPAY | PROVIDERS: PCP Internal Medicine; Visit Provider Internal Medicine Hypertension Specialist | DX: I10 Essential (primary) hypertension (principal) | CPT/HCPCS: 99212 ==

== ENCOUNTER 2024-09-20 13:28 | Outpatient (AMB) | payer OTHER, SELFPAY ==
--- NOTE | 2024-09-20 13:34 | A.OFFVIS_ITS ---
Vital Signs 09/20/24 13:35 Height 5 ft 4 in Weight 145 lb 8.081 oz BMI 25.0 BP 140/80 H Blood Pressure Location Lt brachial Position Sitting Pulse 67 Intake Visit Reasons: 1 yr f/up Intake Note: 1 year follow-up with ekg feeling good Water Systems Engineer Required: Yes Water Systems Engineer Name: alicia Paz Allergies No Known Allergies [No Known Allergies*] Allergy (Verified 05/28/24 11:01) Medication List - Last Reconciled 09/20/24 by Chapin Miranda MD amlodipine 10 mg PO QPM aspirin 81 mg PO QAM atorvastatin 40 mg PO BEDTIME carvedilol 6.25 mg PO BID cholecalciferol (vitamin D3) 50 mcg PO DAILY donepezil 10 mg PO DAILY ezetimibe 10 mg PO DAILY hydrochlorothiazide 50 mg PO DAILY losartan 100 mg PO DAILY pantoprazole 40 mg PO DAILY spironolactone 25 mg PO DAILY HPI Comments Details: Chepe comes for follow-up. History was obtained with help of a lasting floorworker in the room. Patient says blood pressures been better controlled at home although on today's exam the blood pressure is elevated. He said he has been regularly taking his medications. He said he was couple episodes of rapid heart rate with exercise. Symptoms of rapid heart rate says somewhat irregular. He has not had any exertional chest pain or shortness of breath. No orthopnea, PND, leg edema. No lightheadedness, syncope. Comes for follow-up [facility] Medical History Schatzki's ring HTN (hypertension) Dysphagia Acid reflux Surgical History Hx of esophagogastroduodenoscopy H/O umbilical hernia repair Social History Household Members: None Alcohol intake: current Alcohol intake frequency: holidays/special occasions only Patient Tobacco Use Status: Former Tobacco user Years Smoked: 30 +/- Current occupational status: retired Review of Systems Const Denies chills, Denies fatigue, Denies fever(s), Denies frequent falls, Denies weakness, Denies weight gain and Denies weight loss ENT Denies dizziness Card Denies chest pain, Denies leg edema, Denies lightheadedness, Denies palpitations, Denies dyspnea, Denies dyspnea on exertion, Denies orthopnea and Denies other (loss of consciousness) Resp Denies cough, Denies dyspnea and Denies dyspnea on exertion GI Denies hematochezia and Denies change in stool character Musc Denies abnormal gait, Denies muscle weakness, Denies numbness, Denies radiating pain into limb and Denies tingling Neuro Denies Abnormal speech present, Denies abnormal gait, Denies dizziness, Denies frequent falls, Denies numbness, Denies tingling and Denies weakness Endo Denies fatigue and Denies palpitations Physical Exam Vital Signs: Last Vital Signs Pulse 67 09/20/24 13:35 BP 140/80 H 09/20/24 13:35 BMI result Body Mass Index 25.0 Const General: cooperative, comfortable, no acute distress, alert and awake Nutritional Appearance: average body habitus Orientation/consciousness: patient oriented x3 Neck Neck: Yes trachea midline, Yes supple and Yes no JVD Resp Effort & Inspection: normal respiratory effort Auscultation: clear to auscultation bilaterally Cardio Jugular venous distension: no JVD Palpation: normal PMI Rate: regular rate Rhythm: regular rhythm Heart sounds: S1 normal heart sound present, S2 normal heart sound present, no click, no gallops, no murmurs and no rubs Neuro General: patient oriented x3 and no focal motor deficits Speech: No Abnormal speech present Office Procedures EKG Details: EKG shows normal sinus rhythm with moderate voltage criteria for LVH 85295-[id number], Complete Assessment & Plan Assessment & Plan (1) Palpitations: Code(s): R00.2 - Palpitations Category: Medical Plan: Patient was symptoms of palpitation at his age concern would be SVT more likely atrial fibrillation. Would suggest a 30 day event monitor to assess for the same. This will be scheduled in near future. Will also suggest echocardiogram to evaluate LV systolic and diastolic function biatrial chamber size. (2) Uncontrolled hypertension: Code(s): I10 - Essential (primary) hypertension Category: Medical Plan: Patient was uncontrolled hypertension still elevated blood pressure. Will suggest to increase carvedilol to 12.5 mg b.i.d.. Advised to continue monitor blood pressure at home maintain a log. Importance of compliance with medication was discussed. Low-salt diet was discussed. Stress mitigation strategies was discussed. Follow up in the clinic otherwise in 1 year's time, sooner p.r.n.. Thank you for allowing me to partake in his care Medications: New carvedilol (Coreg) must administer with a meal/food 12.5 mg PO BID 60 tabs 5RF Coding Level of Care Code Est Pt Level 4 (33159) Complex EM visit Add On G2211 Diagnoses Palpitations R00.2 Uncontrolled hypertension I10 CPT Codes EKG - CPT: 86582-[id number], Complete ([id number])
[2024-09-20 13:35] VITALS: BP 140/80; PULSE 67; BMI 25.0
--- OUTSIDE RECORDS SUMMARY | 2024-09-20 17:02 | XMS_ITS | Clinical Summary ---
Author Organization [employer] Address [address] [facility] 7t [place] [address] Care Team Providers Care Tube Former Operator Name Role Phone Marta Davis MD Primary Care Provide r Allergies No known active allergies Medications carvedilol (Coreg) 6.25 MG tabletIndications :Essential hypertension Take 1 tablet (6.25 mg) by mouth with breakfast and with evening meal. 60 tablet 12/14/19 24 025 Active Phenol-Glycerin (Chloraseptic Max Sore Throat) 1.5-33 % liquidIndications :Chronic sore throat Use 1 spray in the mouth or throat every 12 (twelve) hours if needed (apply just if needed). 30 mL 3 12/14/19 24 Active ezetimibe (Zetia) 10 MG tabletIndications :Essential hypertension Take 1 tablet (10 mg) by mouth Once per day. 30 tablet 11 12/14/19 24 025 Active losartan (Cozaar) 100 MG tablet TAKE 1 TABLET BY MOUTH EVERY MORNING 90 tablet 1 04/30/20 24 Active hydroCHLOROthiazi de (HYDRODiuril) 50 MG tabletIndications :Hypertension, unspecified type TAKE 1 TABLET BY MOUTH EVERY MORNING 90 tablet 1 04/30/20 24 Active Aspirin Low Dose 81 MG EC tablet TAKE 1 TABLET BY MOUTH EVERY MORNING 90 tablet 1 04/30/20 24 Active pantoprazole (ProtoNix) 40 MG EC tabletIndications :Chronic GERD TAKE 1 TABLET BY MOUTH EVERY MORNING 90 tablet 1 04/30/20 24 Active D3 Super Strength 50 MCG (1999) capsule TAKE 1 CAPSULE BY MOUTH EVERY MORNING 90 capsule 1 06/05/20 24 Active amLODIPine (Norvasc) 10 MG tablet TAKE 1 TABLET BY MOUTH EVERY EVENING 90 tablet 1 06/05/20 24 Active atorvastatin (Lipitor) 40 MG tabletIndications :Other hyperlipidemia TAKE 1 TABLET BY MOUTH EVERY MORNING 90 tablet 1 08/28/19 25 Active donepezil (Aricept) 10 MG tabletIndications :Memory loss TAKE 1 TABLET BY MOUTH EVERY EVENING 90 tablet 1 08/28/19 25 Active atorvastatin (Lipitor) 40 MG tabletIndications :Other hyperlipidemia TAKE 1 TABLET BY MOUTH EVERY MORNING 90 tablet 1 03/01/20 24 025 Discontinued donepezil (Aricept) 10 MG tabletIndications :Memory loss TAKE 1 TABLET BY MOUTH EVERY EVENING 90 tablet 1 03/01/20 24 025 Discontinued Active Problems Problem Noted Date Diagnosed Date Colon cancer screening 03/29/2024 Chronic sore throat 09/14/2023 Abdominal hernia without obstruction and without gangrene 07/15/2023 07/15/2023 Hypertensive disorder 07/15/2023 07/15/2023 Forgetfulness 07/15/2023 07/15/2023 Heartburn 07/15/2023 07/15/2023 Bilateral hearing loss 11/28/2017 4 Dizziness 11/28/2017 07/15/2023 Essential hypertension 11/28/2017 4 Assessment & Plan (03/29/2024 3:53 PM EDT): Maintenance: BMP: up to date Lipid Panel: up to date ASCVD Risk: on atorvastatin 40mg daily, and zetia 10mg daily - Aerobic exercise to reduce BP. Initial goal of 30 min walk 3-5x/week. Increase as tolerated. - low-sodium diet (goal: <2g/day) and heart healthy diet such as DASH to reduce BP and prevent ASCVD. - Home BP monitoring 1-2 x day with goal of <140/90. - Seek immediate medical attention for chest pain, palpitations, SOB, syncope, or sudden changes in mental status. - Do not change or discontinue current prescriptions without first consulting health care provider Assessment & Plan (12/14/2023 2:37 PM EDT): _BP not at goal I added today carvedilol 6.25mg BID and come back in 2 weeks nurse visit if BP not at goal plan is to increase dose of medication and refer him to cardiology and nephrology - Aerobic exercise to reduce BP. Initial goal of 30 min walk 3-5x/week. Increase as tolerated. - low-sodium diet (goal: <2g/day) and heart healthy diet such as DASH to reduce BP and prevent ASCVD. - Home BP monitoring 1-2 x day with goal of <140/90. - Seek immediate medical attention for chest pain, palpitations, SOB, syncope, or sudden changes in mental status. - Do not change or discontinue current prescriptions without first consulting health care provider Assessment & Plan (09/14/2023 9:54 AM EST): Maintenance: BMP: ordered today Lipid Panel: ordered today ASCVD Risk:high he is already on atorvastatin 40mg daily and ASA 81mg daily -I advise to follow cardiology advise and not to miss this appointment - Aerobic exercise to reduce BP. Initial goal of 30 min walk 3-5x/week. Increase as tolerated. - low-sodium diet (goal: <2g/day) and heart healthy diet such as DASH to reduce BP and prevent ASCVD. - Home BP monitoring 1-2 x day with goal of <140/90. - Seek immediate medical attention for chest pain, palpitations, SOB, syncope, or sudden changes in mental status. - Do not change or discontinue current prescriptions without first consulting health care provider Memory impairment 11/28/2017 07/15/2023 Hyperlipidemia 11/28/2017 07/15/2023 Mood disorder 11/28/2017 07/15/2023 Atypical chest pain 04/13/2012 07/15/2023 Cigarette smoker 04/13/2012 07/15/2023 Rupture of pectoralis major muscle 04/13/2012 07/15/2023 Encounters Date Type Department Care Team Description 08/26/2024 Refill [facility] MEDICINE [address] [place] [address] Marta Davis MD Other hyperlipidemia; Memory loss from Last 3 Months Immunizations Name Administration Dates Next Due Influenza High-dose Quadrivalent Preservative Fr ee 08/15/2020 Influenza injectable quadrivalent preservative f ree 06/15/2021 Influenza, Split (incl. purified surface antigen ) 03/15/2013 Pneumococcal Conjugate PCV 13 06/15/2021 Pneumococcal Conjugate PCV 20 09/14/2023 Tdap 11/28/2017,03/15/2013 Social History Tobacco Use Types Packs/Day Years Used Date Smoking Tobacco: Never Passive Smoke Exposure: Never Smokeless Tobacco: Never Tobacco Cessation:Counseling Given: Not Answered Alcohol Use Standard Drinks/Week Comments Never 0 (1 standard drink = 0.6 oz pur e alcohol) Alcohol Answer Date Recorded Frequency of Alcohol Consumption Not on file 03/29/2024 Average Number of Drinks Not on file 024 Frequency of Binge Drinking Not on file 03/11 Score 0 03/29/2024 Depression Answer Date Recorded Patient Health Questionnaire-9 Score 0 09/14/2023 Patient Health Questionnaire-9 Score 0 09/14/2023 Last PHQ-9: Questionnaire Data Not on file 0 09/14/2023 Housing Stability Answer Date Recorded What is your housing situation today? I have maurice humphreys 09/14/[address] you li ve. Do you have problems with any of the following? None of the above 09/14/2023 Food Insecurity Answer Date Recorded Within the past 12 months, y ou worried that your food would run out before you got money to buy more: Never True 09/14/2023 Within the past 12 months,th e food you bought just didn't last and you didn't have enough money to get more: Never True 12/2023 Transportation Answer Date Recorded In the past 12 months, has l ack of transportation kept you from medical appts, meetings, work or from getting things needed for daily living? No 09/14/2023 Utilities Answer Date Recorded In the past 12 months, has t he electric, gas, oil or water company threatened to shut off services in your home? No 09/14/2023 Depression Answer Date Recorded Patient Health Questionnaire-2 Score 0 09/14/2023 Internet Access Answer Date Recorded Internet Access Q1 No 03/29/2024 Internet Access Q2 I do not want or need it 03/11 Sex and Gender Information Value Date Recorded Sex Assigned at Male 05/10/2022 10:15 AM EDT Legal Sex Male 10:15 AM EDT Gender Identity Male 05/10/2022 10:15 AM EDT Sexual Orientation Straight 05/10/2022 10 :15 AM EDT Last Filed Vital Signs Vital Sign Reading Time Taken Comments Blood Pressure 129/73 03/29/2024 2:28 PM EDT Pulse 63 03/29/2024 2:28 PM EDT Temperature 36.1 ??C (97 ??F) 03/29/2024 2:28 PM EDT Respiratory Rate 18 03/29/2024 2:28 PM EDT Oxygen Saturation 99% 03/29/2024 2:28 PM EDT Inhaled Oxygen Concentration - - Weight 65.5 kg (144 lb 6.4 oz) 03/29/2024 2:28 P M EDT Height 162.6 cm (5' 4 ) 03/29/2024 2:28 PM EDT Body Mass Index 24.79 03/29/2024 2:28 PM EDT Plan of Treatment Upcoming Encounters Date Type Department Care Team (Late st Contact Info) Description 10/02/2024 2:30 PM EDT Office Visit [facility] MEDICINE [address] [place], [place] [phone] Marta Davis MD [address] [place] [address] Health Maintenance Due Date Last Done Comments CT Colonography 1953 Colonoscopy 1953 Colorectal Cancer Screening 1953 FIT DNA/Cologuard 1953 FIT 1953 FOBT 1953 Sigmoidoscopy 1953 Hepatitis C Screening 1971 Zoster Vaccines (1 of 2) 2003 COVID-19 Vaccine ( - 2023-2 5 season) 2024 07/21/2021, 10/22/2020, 09/30/2020 Influenza Vaccine (#1) 2024 , 08/15/2020, 03/15/2013 Depression Screening 09/13/2024 09/14/2023, 09/14/2023 Alcohol/Substance Use Screening 03/29/2025 03/29/2024 SDOH Screening 03/29/2025 03/29/2024 Tobacco Screening 03/29/2025 03/29/2024 DTaP/Tdap/Td Vaccines (3 - T d or Tdap) 11/29/2027 11/28/2017, 03/15/2013 RSV Patients and Patients Aged 60 years or older (1 - 1-dose 75+ series) 2028 Lipid Panel 11/07/2028 11/08/2023, 04/06/2022, 11/10/2020 Pneumococcal Vaccine: 50+ Years Completed 09/14/2023, 06/15/2021 HIB Vaccines Aged Out No longer eligi ble based on patient's age to complete this topic HPV Vaccines Aged Out No longer eligi ble based on patient's age to complete this topic Hepatitis A Vaccines Aged Out No long er eligible based on patient's age to complete this topic Hepatitis B Vaccines Aged Out No long er eligible based on patient's age to complete this topic IPV Vaccines Aged Out No longer eligi ble based on patient's age to complete this topic Meningococcal Vaccine Aged Out No edmond mike eligible based on patient's age to complete this topic RSV under 20 months Aged Out No longe r eligible based on patient's age to complete this topic Rotavirus Vaccines Aged Out No longer eligible based on patient's age to complete this topic Procedures Procedure Name Priority Date/Time Associated Diagnosis Comments LIPID PANEL, STANDARD Routine 11/08/2023 8:40 AM EDT Essential hypertension from Last 3 Months or Most Recently Relevant to Health Maintenance Results * (ABNORMAL) Lipid Panel, Standard (11/08/2023 8:40 AM EDT) Triglycerides 90 <150 mg/dL [facility] Comment:Desirable Triglyceri de: less than 150 mg/dLBorderline High Triglyceride 150-199 mg/dLHigh Triglyceride: 200-499 mg/dLVery High Triglyceride: greater than or equal to 5OO mg/dL Cholesterol 228(H) <200 mg/dL [facility] Comment:Desirable Cholestero l: less than 200 mg/dLBorderline High Cholesterol: 200-239 mg/dLHigh Cholesterol: greater than 239 mg/dL LDL Cholesterol Calculated 163(H) <100 mg/dL [facility] Comment:Desirable LDL: less than 100 mg/dLNear Optimal/Above Optimal LDL: 110- 129 mg/dLBorderline High LDL: 130-159 mg/dLHigh LDL: 160-189 mg/dLVery High LDL: greater than or equal to 190 mg/dL HDL Cholesterol 47 >40 mg/dL [facility] Comment:Desirable HDL: great er than 40 mg/dL Note: This HDL assay may give artificially low results in patients with liver disease. Blood Venous blood specimen / Unknown 11/08/2023 8:40 AM EDT 11/08/2023 11:45 AM EDT us Marta Napoles MD LAB BLOOD ORDERABLES Final Result [facility] [address] [place] [address] [phone] from Last 3 Months or Most Recently Relevant to Health Maintenance Insurance [facility] Care Teams Tube Former Operator Relationship Specialty Start Date End Date Marta Davis MD [address] [place] [phone] PCP - General Family Medicine 02/19/19
--- OUTSIDE RECORDS SUMMARY | 2024-09-20 17:02 | XMS_ITS | Encounter Summary ---
Author Organization [employer] [facility] Address [address] [place] [address] [address]t [place] [address] Care Team Providers Care Rotary Screen Printing Machine Operator Name Role Phone Marta Davis MD Primary Care Provide r Encounter Details Date Type Department Care Team (Late st Contact Info) Description 11/18/2022 Orders Only [facility] [address] [place] [address] Krysta Fitzgerald LPN Social History Tobacco Use Types Packs/Day Years Used Date Smoking Tobacco: Never Assessed Sex and Gender Information Value Date Recorded Sex Assigned at Male 05/10/2022 10:15 AM EDT Legal Sex Male 10:15 AM EDT Gender Identity Male 05/10/2022 10:15 AM EDT Sexual Orientation Straight 05/10/2022 10 :15 AM EDT documented as of this encounter Plan of Treatment Upcoming Encounters Date Type Department Care Team (Late st Contact Info) Description 10/02/2024 2:30 PM EDT Office Visit [facility] MEDICINE [address] [place] [address] Marta Davis MD [address] [place] [address] documented as of this encounter Visit Diagnoses Not on filedocumented in this encounter Care Teams Rotary Screen Printing Machine Operator Relationship Specialty Start Date End Date Marta Davis MD [address] [place] [address] [phone] PCP - General Family Medicine 02/19/19 documented as of this encounter
--- OUTSIDE RECORDS SUMMARY | 2024-09-20 17:02 | XMS_ITS | Encounter Summary ---
Author Organization [employer] [facility] Address [address] [place] [address] 7t [place] [address] Care Team Providers Care Petroleum Engineering Professor Name Role Phone Marta Davis MD Primary Care Provide r Encounter Details Date Type Department Care Team (Late st Contact Info) Description 12/15/2022 Orders Only [facility]INE [address] [place] [phone] Sapphire Loco LPN Social History Tobacco Use Types Packs/Day [...] Description 10/02/2024 2:30 PM EDT Office Visit [facility] [address] [place] [phone] Marta Davis MD [address] [place] [phone] documented as of this encounter Visit Diagnoses Not on filedocumented in this encounter Care Teams Petroleum Engineering Professor Relationship Specialty Start Date End Date Marta Davis MD [address] [place] [phone] PCP - General Family Medicine 02/19/19 documented as of this encounter
--- OUTSIDE RECORDS SUMMARY | 2024-09-20 17:02 | XMS_ITS | Encounter Summary ---
Author Organization [employer] Address [address] [facility] [address]t [place] [address] Care Team Providers Care Steam Shovel Runner Name Role Phone Marta Davis MD Primary Care Provide r Reason for Visit * Reason Comments Med Refill Encounter Details Date Type Department Care Team (Late st Contact Info) Description 08/26/2024 Refill [facility] MEDICINE [address] [place], [place] [phone] Marta Davis MD [address] [place], [place] [phone] Other hyperlipidemia; Memory loss Social History Tobacco Use Types Packs/Day Years Used Date Smoking Tobacco: Never Passive Smoke Exposure: Never Smokeless Tobacco: Never Alcohol Use Standard Drinks/Week Comments Never 0 [...] Description 10/02/2024 2:30 PM EDT Office Visit [facility] MED[facility]INE [address] [place], [place] [phone] Marta Davis MD [address] [place] [address] documented as of this encounter Visit Diagnoses Diagnosis Other hyperlipidemia Memory loss documented in this encounter Additional Health Concerns Assessment Noted Time PHQ-9 Depression Total Score: 0 09/14/19 24 9:21 AM EST documented as of this encounter Care Teams Steam Shovel Runner Relationship Specialty Start Date End Date Marta Davis MD [address] [place], [place] [phone] PCP - General Family Medicine 02/19/19 documented as of this encounter
== END 2024-09-20 13:56 | disposition home or self-care (01) ==
LOC: HO.HCS 13:28
PROVIDERS: PCP Internal Medicine; Visit Provider Internal Medicine Cardiovascular Disease
DX: R00.2 Palpitations (principal); I10 Essential (primary) hypertension
CPT/HCPCS: 93010; 99214; G2211

== ENCOUNTER → 2024-09-20 13:28 | Outpatient (BNVA) | payer OTHER, SELFPAY | PROVIDERS: PCP Internal Medicine; Visit Provider Internal Medicine Cardiovascular Disease | DX: I10 Essential (primary) hypertension (principal); R00.2 Palpitations; Z87.891 Personal history of nicotine dependence | CPT/HCPCS: 93005; 99212 ==

== ENCOUNTER 2024-11-16 07:40 | Outpatient (REF) | payer OTHER, SELFPAY ==
--- OUTSIDE RECORDS SUMMARY | 2024-11-16 07:42 | XMS_ITS | Clinical Summary ---
Author Organization [employer] Address [address] [facility] 7t [place] [address] Care Team Providers Care Policy Specialist Name Role Phone Marta Davis MD Primary [...] 30 tablet 11 12/14/19 24 025 Active D3 Super Strength 50 MCG (1999 UT) capsule TAKE 1 CAPSULE BY MOUTH EVERY [...] EVENING 90 tablet 1 08/28/19 25 Active pantoprazole (ProtoNix) 40 MG EC tabletIndications :Chronic GERD TAKE 1 TABLET BY MOUTH EVERY MORNING 90 tablet 1 10/25/19 25 Active losartan (Cozaar) 100 MG tablet TAKE 1 TABLET BY MOUTH EVERY MORNING 90 tablet 1 10/25/19 25 Active hydroCHLOROthiazi de (HYDRODiuril) 50 MG tabletIndications :Hypertension, unspecified type TAKE 1 TABLET BY MOUTH EVERY MORNING 90 tablet 1 10/25/19 25 Active Aspirin Low Dose 81 MG EC tablet TAKE 1 TABLET BY MOUTH EVERY MORNING 90 tablet 1 10/25/19 25 Active losartan (Cozaar) 100 MG tablet TAKE 1 TABLET BY MOUTH EVERY MORNING 90 tablet 1 04/30/20 24 025 Discontinued hydroCHLOROthiazi de (HYDRODiuril) 50 MG tabletIndications :Hypertension, unspecified type TAKE 1 TABLET BY MOUTH EVERY MORNING 90 tablet 1 04/30/20 24 025 Discontinued Aspirin Low Dose 81 MG EC tablet TAKE 1 TABLET BY MOUTH EVERY MORNING 90 tablet 1 04/30/20 24 025 Discontinued pantoprazole (ProtoNix) 40 MG EC tabletIndications :Chronic GERD TAKE 1 TABLET BY MOUTH EVERY MORNING 90 tablet 1 04/30/20 24 025 Discontinued Active Problems Problem Noted Date Diagnosed Date Colon cancer screening 03/29/2024 Chronic sore throat 09/14/2023 Abdominal hernia without obstruction and without gangrene 07/15/2023 07/15/2023 Hypertensive disorder 07/15/2023 07/15/2023 Forgetfulness 07/15/2023 07/15/2023 Heartburn 07/15/2023 07/15/2023 Bilateral hearing loss 11/28/2017 4 Dizziness 11/28/2017 07/15/2023 Essential hypertension 11/28/2017 4 Assessment & Plan (10/02/2024 4:04 PM EDT): Carvedilol dose was recently adjusted by cardiology dose was increased to 12.5 mg twice daily, I advised: - Aerobic exercise to reduce BP. Initial [...] consulting health care provider Assessment & Plan (03/29/2024 3:53 PM EDT): [...] Encounters Date Type Department Care Team Description 10/23/2024 Refill [facility] MEDICINE [address] [place] [address] Marta Davis MD Chronic GERD; Hypertension, unspecified type 10/02/2024 2:30 PM EDT Office Visit [facility] MED[facility]INE [address] [place], [place] [phone] Marta Davis MD Essential hypertension (Primary Dx) 10/02/2024 Travel 09/24/2024 Patient Outreach [facility] [address] [place], [place] [phone] Marta Davis MD Pre-visit Planning (SDOH screening negative and tobacco screening negative) 08/26/2024 Refill [facility] [address] [place], [place] [phone] Marta Davis MD Other hyperlipidemia; Memory loss [...] drink = 0.6 oz pur e alcohol) Depression Answer Date Recorded Patient Health Questionnaire-9 Score 0 10/02/2024 Patient Health Questionnaire-9 Score 0 10/02/2024 Last PHQ-9: Questionnaire Data Not on file 0 10/02/2024 Housing Stability Answer Date Recorded What is [...] Date Recorded Patient Health Questionnaire-2 Score 0 10/02/2024 Internet Access Answer Date Recorded Internet Access Q1 Yes 09/24/2024 Internet Access Q2 I do not want or need it 09/08 Sex and Gender Information Value Date Recorded Sex Assigned at Male 05/10/2022 10:15 AM EDT Legal Sex Male 10:15 AM EDT Gender Identity Male 05/10/2022 10:15 AM EDT Sexual Orientation Straight 05/10/2022 10 :15 AM EDT Last Filed Vital Signs Vital Sign Reading Time Taken Comments Blood Pressure 137/77 10/02/2024 2:28 PM EDT Pulse 60 10/02/2024 2:28 PM EDT Temperature 36 ??C (96.8 ??F) 10/02/2024 2:28 PM EDT Respiratory Rate 20 10/02/2024 2:28 PM EDT Oxygen Saturation 100% 10/02/2024 2:28 PM EDT Inhaled Oxygen Concentration - - Weight 66.2 kg (146 lb) 10/02/2024 2:28 PM EDT Height 162.6 cm (5' 4 ) 10/02/2024 2:28 PM EDT Body Mass Index 25.06 10/02/2024 2:28 PM EDT Plan of Treatment Health Maintenance Due Date Last Done Comments CT Colonography 1953 Colonoscopy 1953 Colorectal Cancer Screening 1953 FIT DNA/Cologuard 1953 FIT 1953 FOBT 1953 Sigmoidoscopy 1953 Hepatitis C Screening 1971 Zoster Vaccines (1 of 2) 2003 COVID-19 Vaccine (4 - 2023-2 5 season) 2024 07/21/2021, 10/22/2020, 09/30/2020 Influenza Vaccine (#1) 2024 , 08/15/2020, 03/15/2013 Alcohol/Substance Use Screening 03/29/2025 03/29/2024 SDOH Screening 09/24/2025 09/24/2024 Depression Screening 10/02/2025 10/02/2024, 10/02/2024 Tobacco Screening 10/02/2025 10/02/2024 DTaP/Tdap/Td Vaccines (3 - T d or [...] 8:40 AM EDT) Triglycerides 90 <150 mg/dL [facility] Comment:Desirable Triglyceri de: less than 150 mg/dLBorderline High Triglyceride 150-199 mg/dLHigh Triglyceride: 200-499 mg/dLVery High Triglyceride: greater than or equal to 5OO mg/dL Cholesterol 228(H) <200 mg/dL [facility] Comment:Desirable Cholestero l: less than 200 mg/dLBorderline High Cholesterol: 200-239 mg/dLHigh Cholesterol: greater than 239 mg/dL LDL Cholesterol Calculated 163(H) <100 mg/dL [facility] Comment:Desirable LDL: less than 100 mg/dLNear Optimal/Above Optimal LDL: 110- 129 mg/dLBorderline High LDL: 130-159 mg/dLHigh LDL: 160-189 mg/dLVery High LDL: greater than or equal to 190 mg/dL HDL Cholesterol 47 >40 mg/dL [facility] Comment:Desirable HDL: great er than 40 mg/dL Note: This HDL assay may give artificially low results in patients with liver disease. Blood Venous blood specimen / Unknown 11/08/2023 8:40 AM EDT 11/08/2023 11:45 AM EDT us Marta Napoles MD LAB BLOOD ORDERABLES Final Result [facility] [address] [place] [address] [phone] from Last 3 Months or Most Recently Relevant to Health Maintenance Insurance [employer] (HMO D-SNP) [place] [id number] Care Teams Policy Specialist Relationship Specialty Start Date End Date Marta Davis MD [address] [place] [phone] PCP - General Family Medicine 02/19/19
--- OUTSIDE RECORDS SUMMARY | 2024-11-16 07:42 | XMS_ITS | Encounter Summary ---
Author Organization [employer] Address [address] [facility] [address]t [place] [address] Care Team Providers Care Rn Integrated Name Role Phone Marta Davis MD Primary Care Provide r Encounter Details Date Type Department Care Team ([facility] st Contact Info) Description 12/15/2022 Orders Only [facility] [address] [place], [place] [phone] Sapphire Loco LPN Social History Tobacco Use Types Packs/Day Years Used Date Smoking Tobacco: Never Assessed Sex and Gender Information Value Date Recorded Sex Assigned at Male 05/10/2022 10:15 AM EDT Legal Sex Male 10:15 AM EDT Gender Identity Male 05/10/2022 10:15 AM EDT Sexual Orientation Straight 05/10/2022 10 :15 AM EDT documented as of this encounter Plan of Treatment Not on file documented as of this encounter Visit Diagnoses Not on filedocumented in this encounter Care Teams Rn Integrated Relationship Specialty Start Date End Date Marta Davis MD [address] [place] [address] PCP - General Family Medicine 02/19/19 documented as of this encounter
[2024-11-16 09:27] LABS: Anion Gap 13 (12-20); Blood Urea Nitrogen 17 mg/dL (9-16); Calcium 9.6 mg/dL (8.4-10.2); Carbon Dioxide 29 mmol/L (22-29); Chloride 101 mmol/L (96-108); Estimated Glomerular Filt Rate > 60; Glucose Random 94 mg/dL (60-115); Potassium 3.6 mmol/L (3.3-5.1); Sodium 139 mmol/L (135-145)
== END 2024-11-16 07:41 | disposition home or self-care (01) ==
LOC: HO.LAB 07:40
PROVIDERS: PCP Internal Medicine; Visit Provider Internal Medicine Hypertension Specialist
DX: I10 Essential (primary) hypertension (principal)
CPT/HCPCS: 36415; 80048; 99212

== ENCOUNTER 2024-11-16 15:39 | Outpatient (AMB) | payer OTHER, SELFPAY ==
[2024-11-16 15:41] VITALS: BP 110/60; BMI 24.5
--- NOTE | 2024-11-16 15:41 | HO.NEPHOV ---
Vital Signs 11/16/24 15:41 Height 5 ft 4 in Weight 143 lb BMI 24.5 BP 110/60 Blood Pressure Location Lt brachial Position Sitting Intake Visit Reasons: 6mon follow up w/labs COnf Gauge And Weigh Machine Operator Required: Yes Gauge And Weigh Machine Operator Name: [id number] castro Accompanied by: Self / Same As Patient Allergies No Known Allergies [No Known Allergies*] Allergy (Verified 11/16/24 15:43) Medication List - Last Reconciled 11/16/24 by Yanick Lind MD amlodipine 10 mg PO QPM aspirin 81 mg PO QAM atorvastatin 40 mg PO BEDTIME carvedilol (Coreg) 12.5 mg PO BID cholecalciferol (vitamin D3) 50 mcg PO DAILY donepezil 10 mg PO DAILY ezetimibe 10 mg PO DAILY hydrochlorothiazide 50 mg PO DAILY losartan 100 mg PO DAILY pantoprazole 40 mg PO DAILY spironolactone 25 mg PO DAILY HPI Comments Details: 69-year-old man with a history of hypertension has been referred for evaluation hypertension and possible 24 hour blood pressure monitoring. All his medications were reviewed. He seems compliant to his medications at this point. No specific complaints today. Gauge And Weigh Machine Operator service was used [facility] Medical History Schatzki's ring HTN (hypertension) Dysphagia Acid reflux Surgical History Hx of esophagogastroduodenoscopy H/O umbilical hernia repair Social History Household Members: None Alcohol intake: current Alcohol intake frequency: holidays/special occasions only Patient Tobacco Use Status: Former Tobacco user Years Smoked: 30 +/- Current occupational status: retired Physical Exam Vital Signs: Last Vital Signs BP 110/60 11/16/24 15:41 BMI result Body Mass Index 24.5 Const General: comfortable; No acute distress Orientation/consciousness: patient oriented x3 Eyes General: appearance normal, both eyes and all related structures Visual Lam: normal visual lam by confrontation Neck Neck: Yes supple and Yes no JVD Resp Effort & Inspection: normal respiratory effort and respiratory effort not decreased Auscultation: rhonchi Cardio Palpation: no palpable S3 and no palpable S4 Heart sounds: no rubs GI Inspection: Yes normal to inspection Palpation (GI): Soft to palpation Percussion: Yes normal to percussion Auscultation: normal bowel sounds General: Yes no CVA tenderness Back/Spine/Pelvis Back: no CVA tenderness Skin General skin exam: no petechiae and no purpura Neuro General: patient oriented x3 and no focal motor deficits Extrem General: No clubbing and No edema Results Reviewed Nephrology Results: Sodium 139 mmol/L (135-145) 11/16/24 Potassium 3.6 mmol/L (3.3-5.1) 11/16/24 Chloride 101 mmol/L (96-108) 11/16/24 Carbon Dioxide 29 mmol/L (22-29) 11/16/24 BUN 17 mg/dL (9-16) H 11/16/24 Creatinine 1.10 mg/dL (0.5-1.4) 11/16/24 Calcium 9.6 mg/dL (8.4-10.2) 11/16/24 Assessment & Plan Assessment & Plan (1) Uncontrolled hypertension: Code(s): I10 - Essential (primary) hypertension Category: Medical Plan 69-year-old man with a history of hypertension currently blood pressure is better controlled with current regimen Encouraged him to stay on low-sodium diet he will bring all his medications during his next visit. In the meantime encouraged him to stay on low-sodium diet. Increase p.o. fluid intake. No changes were made today Orders: Orders Basic Metabolic Panel 6 Months I10 - Essential (primary) hypertension Coding Level of Care Code Est Pt Level 4 (58741) Diagnoses Uncontrolled hypertension I10
--- OUTSIDE RECORDS SUMMARY | 2024-11-16 15:41 | XMS_ITS | Encounter Summary ---
Author Organization [employer] Address [address] [facility] [address] [place] [address] Care Team Providers Care Excel Expert Name Role Phone Marta Davis MD Primary Care Provide r Reason for Visit * Reason Comments Med Refill Encounter Details Date Type Department Care Team (Late st Contact Info) Description 11/16/2024 Refill [facility] MEDICINE [address] [place], [place] [phone] Marta Davis MD [address] [place], [place] [phone] Essential hypertension Social History Tobacco Use Types Packs/Day Years [...] as of this encounter Visit Diagnoses Diagnosis Essential hypertension Unspecified essential hypertension documented in this encounter Additional Health Concerns Assessment Noted Time PHQ-9 Depression Total Score: 0 10/03/19 25 2:56 PM EDT documented as of this encounter Care Teams Excel Expert Relationship Specialty Start Date End Date Marta Davis MD [address] [place] [address] PCP - General Family Medicine 02/19/19 documented as of this encounter
--- OUTSIDE RECORDS SUMMARY | 2024-11-16 15:41 | XMS_ITS | Encounter Summary ---
Author Organization [employer] Address [address] [facility] [address] [place] [address] Care Team Providers Care Blankmaker Name Role Phone Marta Davis MD Primary Care Provide r Encounter Details Date Type Department Care Team ([facility] st Contact Info) Description 11/18/2022 Orders Only [facility] [address] [place] [address] Krysta Fitzgerald LPN Social History Tobacco Use [...] on filedocumented in this encounter Care Teams Blankmaker Relationship Specialty Start Date End Date Marta Davis MD [address] [place] [phone] PCP - General Family Medicine 02/19/19 documented as of this encounter
--- OUTSIDE RECORDS SUMMARY | 2024-11-16 15:41 | XMS_ITS | Encounter Summary ---
Author Organization [employer] Address [address] [facility] 7t [place] [address] Care Team Providers Care Hospital Monitor Name Role Phone Marta Davis MD Primary Care Provide r Encounter Details Date Type Department Care Team ([facility] st Contact Info) Description 12/15/2022 Orders Only [facility] MEDICINE [address] [place], [place] [phone] Sapphire Loco LPN Social History Tobacco Use [...] on filedocumented in this encounter Care Teams Hospital Monitor Relationship Specialty Start Date End Date Marta Davis MD [address] [place] [address] PCP - General Family Medicine 02/19/19 documented as of this encounter
--- OUTSIDE RECORDS SUMMARY | 2024-11-16 15:42 | XMS_ITS | Clinical Summary ---
Author Organization [employer] Address [address] [facility] 7t [place] [address] Care Team Providers Care Camp Nurse Name Role Phone Marta Davis MD Primary Care Provide r Allergies No known active allergies Medications carvedilol (Coreg) 6.25 MG tabletIndications :Essential hypertension Take 1 tablet (6.25 mg) by mouth with breakfast and with evening meal. 60 tablet 11 12/14/19 24 025 Active Phenol-Glycerin (Chloraseptic Max Sore Throat) 1.5-33 % liquidIndications :Chronic sore throat Use 1 spray in the mouth or throat every 12 (twelve) hours if needed (apply just if needed). 30 mL 3 12/14/19 24 Active D3 Super Strength 50 MCG (1999 [...] MORNING 90 tablet 1 10/25/19 25 Active ezetimibe (Zetia) 10 MG tabletIndications :Essential hypertension TAKE 1 TABLET BY MOUTH EVERY MORNING 30 tablet 11 11/17/19 25 Active ezetimibe (Zetia) 10 MG tabletIndications :Essential hypertension Take 1 tablet (10 mg) by mouth Once per day. 30 tablet 11 12/14/19 24 025 Discontinued losartan (Cozaar) 100 MG tablet TAKE 1 [...] Encounters Date Type Department Care Team Description 11/16/2024 Refill [facility] MEDICINE [address] [place] [address] Marta Davis MD Essential hypertension 10/23/2024 Refill [facility] MED[facility] [address] [place] [address] Marta Davis MD Chronic GERD; Hypertension, unspecified type 10/02/2024 2:30 PM EDT Office Visit [facility] [address] [place] [address] Marta Davis MD Essential hypertension (Primary Dx) 10/02/2024 Travel 09/24/2024 Patient Outreach [facility] [address] [place] [address] Marta Davis MD Pre-visit Planning (SDOH screening negative and tobacco screening negative) 08/26/2024 Refill [facility] [address] [place], [place] [phone] Marta Davis MD Other hyperlipidemia; Memory loss [...] your housing situation today? I have maurice juliann 09/14/[address] you li [...] Procedure Name Priority Date/Time Associated Diagnosis Comments BASIC METABOLIC PANEL Routine 11/16/2024 7:55 AM EDT Resistant hypertension LIPID PANEL, STANDARD Routine 11/08/2023 8:40 AM EDT Essential hypertension from Last 3 Months or Most Recently Relevant to Health Maintenance Results * (ABNORMAL) Basic Metabolic Panel (11/16/2024 7:55 AM EDT) Sodium 139 135 - 145 mmol/L [facility] Potassium 3.6 3.3 - 5.1 mmol/L [facility] Chloride 101 96 - 108 mmol/L [facility] Carbon Dioxide 29 22 - 29 mmol/L [facility] Anion Gap 13 12 - 20 [facility] Urea Nitrogen (BUN) 17(H) 9 - 16 mg/dL [facility] Creatinine, Serum 1.10 0.5 - 1.4 mg/dL [facility] Estimated Glomerular Filt Rate >60 [facility] Comment:Chronic Kidney Disea se: Estimated GFR < 60 mL/min/1.93a6Oacxht Kidney Disease: Estimated GFR < 15 mL/min/1.73m2 Glucose 94 60 - 115 mg/dL [facility] Calcium 9.6 8.4 - 10.2 mg/dL [facility] 11/16/2024 7:55 AM EDT 11/16/2024 7:55 AM EDT us Generic External Data Provider LAB BLOOD ORDERAB LES Final Result [facility] [address] [place] [phone] * (ABNORMAL) Lipid Panel, Standard (11/08/2023 8:40 AM EDT) Triglycerides 90 <150 mg/dL [facility] Comment:Desirable Triglyceri de: less than 150 mg/dLBorderline High Triglyceride 150-199 mg/dLHigh Triglyceride: 200-499 mg/dLVery High Triglyceride: greater than or equal to 5OO mg/dL Cholesterol 228(H) <200 mg/dL [facility] Comment:Desirable Cholestero l: less than 200 mg/dLBorderline High Cholesterol: 200-239 mg/dLHigh Cholesterol: greater than 239 mg/dL LDL Cholesterol Calculated 163(H) <100 mg/dL [facility] Comment:Desirable LDL: less than 100 mg/dLNear Optimal/Above Optimal LDL: 110- 129 mg/dLBorderline High LDL: 130-159 mg/dLHigh LDL: 160-189 mg/dLVery High LDL: greater than or equal to 190 mg/dL HDL Cholesterol 47 >40 mg/dL [facility] Comment:Desirable HDL: great er than 40 mg/dL Note: This HDL assay may give artificially low results in patients with liver disease. Blood Venous blood specimen / Unknown 11/08/2023 8:40 AM EDT 11/08/2023 11:45 AM EDT us Marta Napoles MD LAB BLOOD ORDERABLES Final Result [facility] [address] [place] [phone] from Last 3 Months or Most Recently Relevant to Health Maintenance Insurance [facility] OPTIONS (HMO D-SNP) Care Teams Camp Nurse Relationship Specialty Start Date End Date Marta Davis MD [address] [place] [phone] PCP - General Family Medicine 02/19/19
== END 2024-11-16 16:06 | disposition home or self-care (01) ==
LOC: HO.HKA 15:39
PROVIDERS: PCP Internal Medicine; Visit Provider Internal Medicine Hypertension Specialist
DX: I10 Essential (primary) hypertension (principal)
CPT/HCPCS: 99214

== ENCOUNTER 2025-05-16 11:01 | Outpatient (AMB) | payer OTHER, SELFPAY ==
--- NOTE | 2025-05-16 11:04 | HO.NEPHOV_ITS ---
Vital Signs 05/16/25 11:05 Height 5 ft 4 in Weight 145 lb BMI 24.9 BP 120/62 Blood Pressure Location Lt brachial Position Sitting Pulse 68 Pulse Source Pulse Oximeter Pulse Oximetry (%) 98 Oxygen Delivery Method Room Air Intake Visit Reasons: 6 MO FU lvm Health Club Attendant Required: Yes Health Club Attendant Name: [id number] Oleksandr Accompanied by: Self / Same As Patient Allergies No Known Allergies (No Known Allergies*) Allergy (Verified 05/16/25 11:07) Medication List - Last Reconciled 05/16/25 by Yanick Lind MD aspirin 81 mg PO QAM carvedilol (Coreg) 12.5 mg PO BID ezetimibe 10 mg PO DAILY hydrochlorothiazide 50 mg PO DAILY losartan 100 mg PO DAILY pantoprazole 40 mg PO DAILY HPI Comments Details: 70-year-old man with a history of hypertension has been referred for evaluation hypertension and possible 24 hour blood pressure monitoring. All his medications were reviewed. He seems compliant to his medications at this point. No specific complaints today. Health Club Attendant service was used 05/16/25 The patient is a 70-year-old male presenting for a routine follow-up visit to manage hypertension The patient has been consistently taking carvedilol, hydrochlorothiazide, and losartan without any changes in medication regimen. He reports no issues with medication adherence and denies any new symptoms such as trouble breathing, nausea, vomiting, or difficulty with urination. [facility] Medical History Schatzki's ring HTN (hypertension) Dysphagia Acid reflux Surgical History Hx of esophagogastroduodenoscopy H/O umbilical hernia repair Social History Household Members: None Alcohol intake: current Alcohol intake frequency: holidays/special occasions only Patient Tobacco Use Status: Former Tobacco user Years Smoked: 30 +/- Current occupational status: retired Physical Exam Vital Signs: BMI result Body Mass Index 24.9 Const General: comfortable; No acute distress Orientation/consciousness: patient oriented x3 Eyes General: appearance normal, both eyes and all related structures Visual Lam: normal visual lam by confrontation Neck Neck: Yes supple and Yes no JVD Resp Effort & Inspection: normal respiratory effort and respiratory effort not decreased Auscultation: rhonchi Cardio Palpation: no palpable S3 and no palpable S4 Heart sounds: no rubs GI Inspection: Yes normal to inspection Palpation (GI): Soft to palpation Percussion: Yes normal to percussion Auscultation: normal bowel sounds General: Yes no CVA tenderness Back/Spine/Pelvis Back: no CVA tenderness Skin General skin exam: no petechiae and no purpura Neuro General: patient oriented x3 and no focal motor deficits Extrem General: No clubbing and No edema Results Reviewed Nephrology Results: Sodium, (135-145) 139 mmol/L 11/16/24 Potassium, (3.3-5.1) 3.6 mmol/L 11/16/24 Chloride, (96-108) 101 mmol/L 11/16/24 Carbon Dioxide, (22-29) 29 mmol/L 11/16/24 BUN, (9-16) 17 mg/dL H 11/16/24 Creatinine, (0.5-1.4) 1.10 mg/dL 11/16/24 Calcium, (8.4-10.2) 9.6 mg/dL 11/16/24 Assessment & Plan Assessment & Plan (1) Uncontrolled hypertension: Code(s): I10 - Essential (primary) hypertension Category: Medical Plan 70-year-old man with a history of hypertension currently blood pressure is better controlled with current regimen Encouraged him to stay on low-sodium diet he will bring all his medications during his next visit. In the meantime encouraged him to stay on low-sodium diet. Increase p.o. fluid intake. No changes were made today Orders: Orders Basic Metabolic Panel 6 Months I10 - Essential (primary) hypertension Complete Blood Count no Diff 6 Months I10 - Essential (primary) hypertension UA and rflx microscopic 6 Months I10 - Essential (primary) hypertension Basic Metabolic Panel Today I10 - Essential (primary) hypertension Coding Level of Care Code Est Pt Level 4 (14872) Diagnoses Uncontrolled hypertension I10
[2025-05-16 11:05] VITALS: BP 120/62; PULSE 68; O2SAT 98; BMI 24.9
--- OUTSIDE RECORDS SUMMARY | 2025-05-16 13:32 | XMS_ITS | Encounter Summary ---
Author Organization [employer] Address [address] [facility] 7t [place] [address] Care Team Providers Care Senior Data Modeler Name Role Phone Marta Davis MD Primary Care Provide r Encounter Details Date Type Department Care Team ([facility] st Contact Info) Description 11/18/2022 Orders Only [facility] & PEDS [address] [place] [address] Krysta Fitzgerald LPN Social History Tobacco Use [...] on filedocumented in this encounter Care Teams Senior Data Modeler Relationship Specialty Start Date End Date Marta Davis MD [address] [place] [phone] PCP - General Family Medicine 02/19/19 documented as of this encounter
--- OUTSIDE RECORDS SUMMARY | 2025-05-16 13:32 | XMS_ITS | Encounter Summary ---
Author Organization [employer] Address [address] [facility] [address]t [place] [address] Care Team Providers Care Environmental Maintenance Worker Name Role Phone Marta Davis MD Primary Care Provide r Encounter Details Date Type Department Care Team ([facility] st Contact Info) Description 12/15/2022 Orders Only [facility] MEDICINE [address] [place] [address] Sapphire Loco LPN Social History Tobacco Use [...] on filedocumented in this encounter Care Teams Environmental Maintenance Worker Relationship Specialty Start Date End Date Marta Davis MD [address] [place] [address] PCP - General Family Medicine 02/19/19 documented as of this encounter
--- OUTSIDE RECORDS SUMMARY | 2025-05-16 13:32 | XMS_ITS | Clinical Summary ---
Author Organization [employer] Address [address] [facility] [address] [place] [address] Care Team Providers Care Press Operator Carbon Blocks Name Role Phone Marta Davis MD Primary Care Provide r Allergies No known active allergies Medications carvedilol (Coreg) 6.25 MG tabletIndications :Essential hypertension Take 1 tablet (6.25 mg) by mouth with breakfast and with evening meal. 60 tablet 11 12/14/19 24 Active Phenol-Glycerin (Chloraseptic Max Sore Throat) 1.5-33 % liquidIndications :Chronic sore throat Use 1 spray in the mouth or throat every 12 (twelve) hours if needed (apply just if needed). 30 mL 3 12/14/19 24 Active donepezil (Aricept) 10 MG tabletIndications :Memory loss TAKE 1 TABLET BY MOUTH EVERY EVENING 90 tablet 1 08/28/19 25 Active ezetimibe (Zetia) 10 MG tabletIndications :Essential hypertension TAKE 1 TABLET BY MOUTH EVERY MORNING 30 tablet 11 11/17/19 25 Active amLODIPine (Norvasc) 10 MG tablet TAKE 1 TABLET BY MOUTH EVERY EVENING 90 tablet 1 11/27/19 25 Active D3 Super Strength 50 MCG (1999 [place]) capsule TAKE 1 CAPSULE BY MOUTH EVERY MORNING 90 capsule 11/27/19 25 Active atorvastatin (Lipitor) 40 MG tabletIndications :Other hyperlipidemia TAKE 1 TABLET BY MOUTH EVERY MORNING 90 tablet 1 02/23/20 25 Active Aspirin Low Dose 81 MG EC tablet TAKE 1 TABLET BY MOUTH EVERY MORNING 90 tablet 1 04/23/20 25 Active hydroCHLOROthiazi de (HYDRODiuril) 50 MG tabletIndications :Hypertension, unspecified type TAKE 1 TABLET BY MOUTH EVERY MORNING 90 tablet 1 04/23/20 25 Active losartan (Cozaar) 100 MG tablet TAKE 1 TABLET BY MOUTH EVERY MORNING 90 tablet 1 04/23/20 25 Active pantoprazole (ProtoNix) 40 MG EC tabletIndications :Chronic GERD TAKE 1 TABLET BY MOUTH EVERY MORNING 90 tablet 1 04/23/20 25 Active pantoprazole (ProtoNix) 40 MG EC tabletIndications :Chronic GERD TAKE 1 TABLET BY MOUTH EVERY MORNING 90 tablet 1 10/25/19 025 Discontinued losartan (Cozaar) 100 MG tablet TAKE 1 TABLET BY MOUTH EVERY MORNING 90 tablet 1 10/25/19 025 Discontinued hydroCHLOROthiazi de (HYDRODiuril) 50 MG tabletIndications :Hypertension, unspecified type TAKE 1 TABLET BY MOUTH EVERY MORNING 90 tablet 1 10/25/19 025 Discontinued Aspirin Low Dose 81 MG EC tablet TAKE 1 TABLET BY MOUTH EVERY MORNING 90 tablet 1 10/25/19 025 Discontinued Active Problems Problem Noted Date [...] Encounters Date Type Department Care Team Description 04/22/2025 Refill [facility] [address] [place] [address] Marta Davis MD Hypertension, unspecified type; Chronic GERD 03/07/2025 9:20 AM EDT Office Visit [facility] [address] [place], [place] [phone] Dl Yen MD COVID-19 03/07/2025 Travel 02/21/2025 Refill [facility] [address] [place] [address] Marta Davis MD Other hyperlipidemia from Last 3 Months Immunizations Immunization Administration Dates Next Due Influenza High-dose Quadrivalent [...] your housing situation today? I have maurice sing 09/14/[address] you li [...] the past 12 months, has t he [employer], gas, oil or water company threatened to shut off services in your home? No 09/14/2023 Depression Answer Date Recorded Patient Health Questionnaire-2 Score 0 10/02/2024 Internet Access Answer Date Recorded Internet Access Q1 Yes 03/31/2025 Internet Access Q2 Not on file 03/31/2025 Sex and Gender Information Value Date Recorded Sex Assigned at Male 05/10/2022 10:15 AM EDT Legal Sex Male 10:15 AM EDT Gender Identity Male 05/10/2022 10:15 AM EDT Sexual Orientation Straight 05/10/2022 10 :15 AM EDT Last Filed Vital Signs Vital Sign Reading Time Taken Comments Blood Pressure 153/96 03/07/2025 9:16 AM EDT Pulse 81 03/07/2025 9:16 AM EDT Temperature 36.8 C (98.3 F) 03/07/2025 9:16 AM EDT Respiratory Rate 20 03/07/2025 9:16 AM EDT Oxygen Saturation 98% 03/07/2025 9:16 AM EDT Inhaled Oxygen Concentration - - Weight 63.2 kg (139 lb 6.4 oz) 03/07/2025 9:16 A M EDT Height 162.6 cm (5' 4 ) 03/07/2025 9:16 AM EDT Body Mass Index 23.93 03/07/2025 9:16 AM EDT Plan of Treatment Health Maintenance Due Date Last Done Comments CT Colonography 1953 Colonoscopy 1953 Colorectal Cancer Screening 1953 FIT DNA/Cologuard 1953 FIT 1953 FOBT 1953 Sigmoidoscopy 1953 Alcohol/Substance Use Screening 1965 Hepatitis C Screening 1971 Zoster Vaccines (1 of 2) 2003 COVID-19 Vaccine (4 - 2024-2 6 season) 2025 07/21/2021, 10/22/2020, 09/30/2020 Influenza Vaccine (#1) 2025 , 08/15/2020, 03/15/2013 SDOH Screening 09/24/2025 09/24/2024 Depression Screening 10/02/2025 [...] patient's age to complete this topic Meningococcal B Vaccine Aged Out No l onger eligible based on patient's age to complete [...] Procedure Name Priority Date/Time Associated Diagnosis Comments POCT INFLUENZA B (ID NOW RAPID MOLECULAR) Routine 03/07/2025 9:43 AM EDT COVID-19 POCT INFLUENZA A (ID NOW RAPID MOLECULAR) Routine 03/07/2025 9:42 AM EDT COVID-19 POC ESTRADA ID NOW STREP A Routine 03/07/2025 9:41 AM EDT COVID-19 POCT RAPID COVID ANTIGEN Routine 03/07/2025 9:29 AM EDT COVID-19 LIPID PANEL, STANDARD Routine 11/08/2023 8:40 AM EDT Essential hypertension from Last 3 Months or Most Recently Relevant to Health Maintenance Results * POCT Rapid Influenza B ESTRADA ID NOW (03/07/2025 9:43 AM EDT) [facility] Influenza B Negative Negative, Indeterminate [facility] QC Media Lot # [id number] [facility] Lot# Expiration Date [facility] Swab 03/07/2025 9:43 AM EDT Dl Yen MD POINT OF CARE TEST ENTER/EDIT OR DERABLES Final Result Performing Organization Address [facility]/ZIP Co de Phone Number [facility] [address] [place] [phone] * POCT Rapid Influenza A ESTRADA ID NOW (03/07/2025 9:42 AM EDT) [facility] Influenza A Negative Negative, Indeterminate [facility] QC Media Lot # [id number] [facility] Lot# Expiration Date [facility] Swab 03/07/2025 9:42 AM EDT us Dl Yen MD POINT OF CARE TEST ENTER/EDIT OR DERABLES Final Result Performing Organization Address City/[facility]/ZIP Co de Phone Number [facility] [address] [place] [phone] * POCT Rapid Strep A ESTRADA ID NOW (03/07/2025 9:41 AM EDT) [facility] Rapid Strep A Screen Negative Negative, None Detected QC Media Lot # [id number] Lot# Expiration Date 12526 Swab 03/07/2025 9:41 AM EDT Dl Yen MD POINT OF CARE TEST ENTER/EDIT OR DERABLES Final Result * (ABNORMAL) POCT Rapid Covid-19 BinaxNOW (03/07/2025 9:29 AM EDT) [facility] Rapid COVID Ag Positive QC Media Lot # [id number] Lot# Expiration Date 8 Swab 03/07/2025 9:29 AM EDT Dl Yen MD POINT OF CARE TEST ENTER/EDIT OR DERABLES Final Result * (ABNORMAL) Lipid Panel, Standard (11/08/2023 8:40 AM EDT) [facility] Triglycerides 90 <150 mg/dL [facility] Comment:Desirable Triglyceri de: less than 150 mg/dLBorderline High Triglyceride 150-199 mg/dLHigh Triglyceride: 200-499 mg/dLVery High Triglyceride: greater than or equal to 5OO mg/dL Cholesterol 228(H) <200 mg/dL [facility] Comment:Desirable Cholestero l: less than 200 mg/dLBorderline High Cholesterol: 200-239 mg/dLHigh Cholesterol: greater than 239 mg/dL LDL Cholesterol Calculated 163(H) <100 mg/dL [facility] Comment:Desirable LDL: less than 100 mg/dLNear Optimal/Above Optimal LDL: 110- 129 mg/dLBorderline High LDL: 130-159 mg/dLHigh LDL: 160-189 mg/dLVery High LDL: greater than or equal to 190 mg/dL HDL Cholesterol 47 >40 mg/dL [facility] Comment:Desirable HDL: great er than 40 mg/dL Note: This HDL assay may give artificially low results in patients with liver disease. Blood Venous blood specimen / Unknown 11/08/2023 8:40 AM EDT 11/08/2023 11:45 AM EDT Marta Napoles MD LAB BLOOD ORDERABLES Final Result [facility] [address] [place] [phone] from Last 3 Months or Most Recently Relevant to Health Maintenance Insurance [facility] [employer] OPTIONS (HMO D-SNP) [facility] [id number] Care Teams Press Operator Carbon Blocks Relationship Specialty Start Date End Date Marta Davis MD [address] [place] [address] PCP - General Family Medicine 02/19/19
== END 2025-05-16 11:55 | disposition home or self-care (01) ==
LOC: HO.HKA 11:02
PROVIDERS: PCP Internal Medicine; Visit Provider Internal Medicine Hypertension Specialist
DX: I10 Essential (primary) hypertension (principal)
CPT/HCPCS: 99214

== ENCOUNTER 2025-05-16 11:17 | Outpatient (REF) | payer OTHER, SELFPAY ==
[2025-05-16 13:44] LABS: Anion Gap 14 (12-20); Blood Urea Nitrogen 18 mg/dL (9-16); Calcium 9.8 mg/dL (8.4-10.2); Carbon Dioxide 32 mmol/L (22-29); Chloride 99 mmol/L (96-108); Estimated Glomerular Filt Rate 57; Potassium 4.6 mmol/L (3.3-5.1); Sodium 140 mmol/L (135-145)
== END 2025-05-16 11:18 | disposition home or self-care (01) ==
LOC: HO.10HDL 11:17
PROVIDERS: Visit Provider Internal Medicine Hypertension Specialist
DX: I10 Essential (primary) hypertension (principal)
CPT/HCPCS: 36415; 80048; 99212